=== PATIENT | female | born 1980 | race Caucasian/White ===

== ENCOUNTER 2016-09-08 19:22 | Inpatient (IN) | payer BC, OTHER ==
[2016-09-08] MEDS ORDERED: MORPHINE SULFATE 5 MG/ML PFS IVP ONE (19:41)
[2016-09-08] MEDS ORDERED: ONDANSETRON HCL IV 4 MG/2 ML VIAL IVP PRN (19:41)
[2016-09-08] MEDS ORDERED: 0.9 % SODIUM CHLORIDE 1000ML 1,000 ML IV SCH (19:45)
--- NOTE | 2016-09-08 19:45 | Emergency Department Record ---
History of Present Illness - General Chief Complaint: Abdominal Pain Stated Complaint: VOMITING AND ABD PAIN Time Seen by Provider: 09/08/16 19:41 Source: Patient Mode of Arrival: Ambulatory Limitations: No limitations - History of Present Illness Initial Comments: 36 yo female presents to ED with a CC of abdominal pain and vomiting that began last night. Patient denies fevers, chills, or recent illness, does report a history of Crohn's and gallstones. Patient reports abdominal pain at her baseline, but reports that today's symptoms are worse. Patient underwent colonoscopy in June for her symptoms with Dr. Cabrera. Complaint: Abdominal pain Onset/Timin -: Days(s) Location: Epigastric Radiation: Back Severity: Moderate Quality: Sharp, Stabbing Consistency: Constant Improves With: Nothing Worsens With: Nothing Associated Symptoms: Diarrhea, Nausea, Vomiting Treatments Prior to Arrival: Antacids - Related Data LMP Date: 09/01/16 Home Medications Medication Instructions Recorded Confirmed Last Taken Budesonide [Entocort EC] 3 mg PO DAILY 09/08/16 09/08/16 Unknown Lamotrigine [Lamictal] 50 mg PO DAILY 09/08/16 09/08/16 Unknown Allergies Allergy/AdvReac Type Severity Reaction Status Date / Time epinephrine AdvReac Mild hypotension Verified 09/08/16 19:37 Travel Screening - Travel/Exposure Within Last 30 Days Have you traveled within the last 30 days?: No - Travel/Exposure Within Last Year Have you traveled outside the [place] in the last year?: No - Additonal Travel Details Have you been exposed to anyone with a communicable illness?: No Review of Systems Constitutional: Denies: Chills, Fever, Malaise, Night sweats Eyes: Denies: Eye discharge, Eye pain ENT: Denies: Congestion, Ear pain, Epistaxis Respiratory: Denies: Cough, Dyspnea Cardiovascular: Denies: Chest pain, Dyspnea on exertion, Palpitations Endocrine: Denies: Fatigue, Heat or cold intolerance Gastrointestinal: Reports: Abdominal pain, Nausea, Vomiting Genitourinary: Denies: Dysuria, Frequency, Hematuria Musculoskeletal: Denies: Arthralgia, Back pain, Gout, Joint swelling Skin: Denies: Bruising, Change in color, Pruritus Neurological: Denies: Abnormal gait, Confusion, Headache, Seizure Psychiatric: Denies: Anxiety Hematological/Lymphatic: Denies: Anemia, Blood Clots Past Medical History - SOCIAL HISTORY Smoking Status: Never smoker Alcohol Use: None Drug Use: None - RESPIRATORY Hx Respiratory Disorders: Yes Hx Asthma: Yes (activity induced asthma) - CARDIOVASCULAR Hx Cardio Disorders: No - NEURO Hx Neuro Disorders: Yes Hx Headaches: Yes Hx of Migraines: Yes - GI Hx GI Disorders: Yes Hx Abdominal Pain: Yes Hx Crohn's Disease: Yes Hx Nausea/Vomiting: Yes Hx Wt Loss/Wt Gain: Yes (fluxuates) Comment:: diarrhea - Hx Genitourinary Disorders: No Comment:: pt had tubal ligation October,, has had vasectomy - ENDOCRINE Hx Endocrine Disorders: No - MUSCULOSKELETAL Hx Musculoskeletal Disorders: Yes Comment:: wrist/hand pain - PSYCH Hx Psych Problems: Yes Hx Depression: Yes - HEMATOLOGY/ONCOLOGY Hx Hematology/Oncology Disorders: No Family Medical History Any Significant Family History?: No Family Hx Comment (NOT TO BE USED IN PLACE OF ITEMS BELOW): pt adopted Physical Exam - General General Appearance: Alert, Oriented x3, Cooperative, No acute distress Limitations: No limitations - Head Head exam: Atraumatic, Normocephalic, Normal inspection Head exam detail: negative: Abrasion, Contusion, Delgado's sign, General tenderness, Hematoma, Laceration - Eye Eye exam: Normal appearance. negative: Conjunctival injection, Periorbital swelling, Periorbital tenderness, Scleral icterus - ENT Ear exam: negative: Auricular hematoma, Auricular trauma Nasal Exam: negative: Active bleeding, Discharge, Dried blood, Foreign body Mouth exam: negative: Drooling, Laceration, Muffled voice, Tongue elevation - Neck Neck exam: Normal inspection. negative: Meningismus, Tenderness - Respiratory Respiratory exam: Normal lung sounds bilaterally. negative: Respiratory distress, Rhonchi, Stridor, Wheezes - Cardiovascular Cardiovascular Exam: Regular rate, Normal rhythm, Normal heart sounds - GI/Abdominal GI/Abdominal exam: Soft, Tenderness (Diffuse TTP on examination with guarding present, no rebound, no peritoneal signs present.). negative: Distended, Pulsatile mass, Rebound, Rigid - Rectal Rectal exam: Deferred - exam: Deferred - Extremities Extremities exam: Normal inspection. negative: Calf tenderness, Pedal edema, Tenderness - Back Back exam: Reports: Normal inspection. Denies: CVA tenderness (R), CVA tenderness (L) - Neurological Neurological exam: Alert, Normal gait, Oriented X3 - Psychiatric Psychiatric exam: Normal affect, Normal mood - Skin Skin exam: Normal color. negative: Abrasion Type of lesion: negative: abrasion Course Vital Signs 09/08/16 19:26 Temperature 98.0 F Pulse Rate 96 H Respiratory 20 Rate Blood Pressure 102/88 Pulse Ox 98 - Reevaluation(s) Reevaluation #1: 09/08/16 21:16 Labs reviewed, WBC 14.7, AG 16.8. Labs are otherwise grossly unremarkable for an acute process. CT Abdomen and Pelvis: Fluid-filled small bowel down the RLQ c/w partial SBO, 20 cm section of bowel wall thickening present c/w active crohn's. 9:16 AM Case was discussed with Ana Cristina DELA CRUZ, will accept admission with consultation to Dr. Bassett in the morning. Patient and her mother were updated on all results, and agree with the plan for admission at this time. Reevaluation #2: 09/08/16 21:32 Message and text sent to Dr. Bassett regarding consultation tomorrow morning. Medical Decision Making - Lab Data Result diagrams: 09/08/16 19:51 09/08/16 19:51 Disposition Disposition: Admit Clinical Impression: Partial small bowel obstruction Exacerbation of Crohn's disease Qualifiers: Digestive disease complication type: unspecified complication Qualified Code(s) : K50.919 - Crohn's disease, unspecified, with unspecified complications Disposition: Still a Patient at [facility] Decision to Admit: Admit from ER Decision to Admit Date: 09/08/16 Decision to Admit Time: 21:23 Condition: (1) Good Forms: Patient Portal Access Time of Disposition: 21:23
[2016-09-08 19:57] LABS: BASO % 0.2 % (0-6); EOS % 0.3 % (0-6); HEMATOCRIT 45.5 % (35.0-47.0); HEMOGLOBIN 14.8 gm/dl (11.6-16.0); LYMPH % 8.7 % (16-45); MEAN CELL VOLUME 88.7 fl (81-97); MEAN CORPUSCULAR HEMOGLOBIN 28.8 pg (27-33); MEAN CORPUSCULAR HGB CONC 32.5 g/dl (32-36); MEAN PLATELET VOLUME 9.2 fl (7.4-10.4); MONO % 5.5 % (0-9); PLATELET COUNT 401 K/uL (130-400); RED BLOOD COUNT 5.13 M/uL (3.80-5.40); RED CELL DISTRIBUTION WIDTH 14.9 % (11.5-14.5); WHITE BLOOD COUNT W/O DIFF 14.7 K/uL (4.2-12.2)
[2016-09-08 20:06] LABS: ALB/GLOB RATIO 1.3 (1.1-1.8); ALBUMIN 4.2 gm/dL (3.5-5.0); ALKALINE PHOSPHATASE 101 U/L (38-126); ALT/SGPT 41 U/L (9-52); ANION GAP 16.8 (7-16); CARBON DIOXIDE 23.2 mmol/L (22-30); CREATININE 0.9 mg/dL (0.52-1.04); EST GLOMERULAR FILTRATION RATE > 60 ml/min; GLUCOSE,RANDOM 125 mg/dL (70-110); LIPASE 46 U/L (23-300); TOTAL PROTEIN 7.5 gm/dL (6.3-8.2)
[2016-09-08 20:07] LABS: AST/SGOT 23 U/L (14-36); BILIRUBIN,TOTAL 0.68 mg/dL (0.2-1.3); BLOOD UREA NITROGEN 13 mg/dL (7-17)
[2016-09-08] MEDS ORDERED: 0.9 % SODIUM CHLORIDE 1000ML 1,000 ML IV ONE (20:59)
[2016-09-08] MEDS ORDERED: METHYLPREDNISOLONE PF 125MG/VIAL IVP ONE (21:33)
[2016-09-08] MEDS ORDERED: MORPHINE SULFATE 5 MG/ML PFS IM PRN (22:16)
[2016-09-08] MEDS: ONDANSETRON HCL IV 4 MG/2 ML VIAL IVP PRN (23:09)
[2016-09-08] MEDS: 0.9 % SODIUM CHLORIDE 1000ML 1,000 ML IV PRN (23:27)
[2016-09-08] MEDS: MORPHINE SULFATE 5 MG/ML PFS IVP PRN (23:46)
[2016-09-09] MEDS: ONDANSETRON HCL IV 4 MG/2 ML VIAL IVP PRN ×4 (07:14→22:39)
[2016-09-09 07:45] LABS: URINE APPEARANCE CLEAR; URINE BILIRUBIN NEGATIVE (NEGATIVE); URINE BLOOD NEGATIVE (NEGATIVE); URINE COLOR YELLOW; URINE GLUCOSE (UA) NEGATIVE (NEGATIVE); URINE KETONE NEGATIVE (NEGATIVE); URINE LEUKOCYTE ESTERASE NEGATIVE (NEGATIVE); URINE NITRITE NEGATIVE (NEGATIVE); URINE PROTEIN TRACE (NEGATIVE); URINE UROBILINOGEN 0.2 E.U./dL (0.20 - 1.00)
--- NOTE | 2016-09-09 07:45 | CT SCAN REPORT ---
EXAM: ABDOMEN AND PELVIS CT WITH IV CONTRAST HISTORY: ACUTE PERIUMBILICAL ABDOMINAL PAIN RADIATING TO BACK FOR TWO DAYS. HISTORY OF CROHN'S DISEASE AND CHOLELITHIASIS. TECHNIQUE: Contiguous axial images from the lung bases to the symphysis pubis were obtained after the uneventful intravenous administration of 100 ml of Omnipaque 300. Comparison: Abdomen and pelvis CT 05/30/16. FINDINGS: The lung bases are clear. The liver, spleen, kidneys, adrenals, and pancreas are unremarkable. The gallbladder is contracted with calcified gallstones measuring up to 2.5 cm. No adjacent inflammation. Mildly dilated fluid filled small bowel extending to the central pelvis. The small bowel measures up to 4.4 cm in diameter. There is a long segment of ileum in the central pelvis and right lower quadrant measuring approximately 20 cm in length with intense mucosal enhancement, bowel wall edema and thickening and adjacent inflammation consistent with enteritis. This extends to the terminal ileum. Fluid filled colon with no colonic wall thickening. No free intraperitoneal fluid. Small, but conspicuous mesenteric lymph nodes, the largest in the right lower quadrant measuring up to 12 x 8 mm. The uterus is present. The ovaries are symmetric in size. No lytic or blastic osseous lesion. IMPRESSION: 1. LOW GRADE PARTIAL SMALL BOWEL OBSTRUCTION DUE TO ACTIVE ENTERITIS INVOLVING 20 CM OF ILEUM EXTENDING TO THE TERMINAL ILEUM. FINDINGS ARE LIKELY DUE TO ACTIVE CROHN'S DISEASE. 2. CHOLELITHIASIS WITHOUT EVIDENCE OF ACUTE CHOLECYSTITIS. 3. REACTIVE ADENOPATHY WITHIN THE MESENTERY IN THE RIGHT LOWER QUADRANT. JOB NUMBER: [id number] MTDD
[2016-09-09 07:47] LABS: HCG,QUALITATIVE URINE NEGATIVE (NEGATIVE)
[2016-09-09] MEDS: 0.9 % SODIUM CHLORIDE 1000ML 1,000 ML IV PRN ×2 (08:06→16:30)
[2016-09-09 09:43] LABS: HEMOGLOBIN 11.8 gm/dl (11.6-16.0); MEAN CORPUSCULAR HEMOGLOBIN 29.4 pg (27-33); MEAN CORPUSCULAR HGB CONC 31.9 g/dl (32-36); MEAN PLATELET VOLUME 9.1 fl (7.4-10.4); PLATELET COUNT 304 K/uL (130-400); RED BLOOD COUNT 4.02 M/uL (3.80-5.40); RED CELL DISTRIBUTION WIDTH 14.7 % (11.5-14.5); WHITE BLOOD COUNT W/O DIFF 6.6 K/uL (4.2-12.2)
[2016-09-09 09:53] LABS: ALB/GLOB RATIO 1.2 (1.1-1.8); ALKALINE PHOSPHATASE 89 U/L (38-126); ALT/SGPT 188 U/L (9-52); ANION GAP 13.7 (7-16); AST/SGOT 249 U/L (14-36); BILIRUBIN,TOTAL 0.59 mg/dL (0.2-1.3); BLOOD UREA NITROGEN 10 mg/dL (7-17); CARBON DIOXIDE 22.3 mmol/L (22-30); CREATININE 0.7 mg/dL (0.52-1.04); EST GLOMERULAR FILTRATION RATE > 60 ml/min; GLUCOSE,RANDOM 120 mg/dL (70-110); TOTAL PROTEIN 5.5 gm/dL (6.3-8.2)
[2016-09-09] MEDS: MORPHINE SULFATE 5 MG/ML PFS IVP PRN (10:44)
[2016-09-09] MEDS: LAMOTRIGINE 100 MG TABLET PO SCH (10:47)
--- NOTE | 2016-09-09 13:03 | Medical Records Consult ---
CONSULTATION DATE: 09/09/2016. REQUESTING PHYSICIAN: Akhil Bassett D.O. REASON FOR CONSULTATION: Abdominal pain with terminal ileitis. HISTORY OF PRESENT ILLNESS: The patient is a 36-year-old female who has had vague abdominal pain for the last year or so. They have been working her up for the presumed diagnosis of Crohns disease. She underwent a colonoscopy about a month ago on which she was noted to have marked stenosis and stricturing of her ileocecal valve. Nonetheless this was traversed, and ileal biopsies were taken. These are still pending. She states that she was placed on some Entocort and was sent home. She did well until the last 24 to 36 hours. She did have some periumbilical pain which she felt was a recurrent umbilical hernia. She was seen in the emergency room where a repeat CT scan was done. This did show partial small bowel obstruction with extensive thickening and narrowing of her terminal ileum. She had an elevated white blood cell count at 14.7. Since being admitted she has been given intravenous Solu Medrol and bowel rest. She initially had some issues with vomiting and diarrhea when admitted, but this has all calmed down. PAST MEDICAL HISTORY: Is significant for inflammatory bowel disease. PAST SURGICAL HISTORY: Laparoscopic tubal ligation in October of 2014. Subsequent open umbilical herniorrhaphy about 18 months ago. CURRENT MEDICATIONS: She only takes Entocort and Lamictal. ALLERGIES: She has no known medical allergies. SOCIAL HISTORY: She denies any tobacco or alcohol usage. PHYSICAL EXAMINATION: Vital Signs: Are stable. Heart: Regular rate and rhythm. Lungs: Clear. Abdomen: Soft. Mildly obese. It is minimally tender diffusely. There are bowel sounds noted. She has a well-healed infraumbilical scar from her prior hernia. DIAGNOSTIC DATA: Her CT scan was reviewed which did show diffuse thickening of her terminal ileum. There is narrowing proximal to this with a partial small bowel obstruction component. She has a very heavy stone burden in her gallbladder. IMPRESSION: Inflammatory bowel disease, most likely Crohns, causing partial small bowel obstruction. PLAN: After speaking with the patient and GI, she has been failing medical therapy. I think at some point she is going to need a laparoscopic ileocecectomy. The plan will be to continue some intravenous steroids to calm this down and taper over the next two to three weeks. She brought up wanting a laparoscopic cholecystectomy at the same time which we could accommodate. At this point we will start her on clear liquids. I will see her in the office in about a week's time. Thank you for this referral. Rocky Steiner D.O. Date Time JOB NUMBER: [id number] MTDD
[2016-09-09] MEDS ORDERED: HYDROCODONE/APAP 7.5/325MG TABLET PO PRN ×2 (13:23)
[2016-09-09] MEDS ORDERED: METHYLPREDNISOLONE SOD 40MG/VIAL IVP SCH (13:30)
--- NOTE | 2016-09-09 15:13 | History & Physical ---
History of Present Illness - Date of Service Date of Service for History & Physical: 09/09/16 - History of Present Illness Admitting Diagnosis: Crohn's exacerbation. Partial SBO History of Present Illness: 36yo female with CC of abdominal pain and vomiting. She has a history of Crohn's , asthma, migraines and depression. Patient presented to the ED with 2 day history of sharp abdominal pain radiating through to the back. She reports if felt like an arrow was going through me. This was different than her baseline abdominal cramping. she began to have nausea and vomiting and was unable to keep fluids down. She decided to come to the ED. While in the ED, patient had CT abdomen that showed a partial SBO 2/2 to a segment of active enteritis extending 20cm from ileum to terminal ileum. Patient was afebrile. WBC count was slightly elevated at 14.2. CRP was 1.3. UA was negative for infection did have trace protein. Patient was given 125mg IV solumedrol, made NPO and was admitted for acute Crohn's flare with partial SBO. GI was consulted. 09/09/16- Patient states she is doing a little better today. Her pain is no longer sharp and constant and is now more of an intermittent cramping sensation mostly in the lower abdomen. She has not had any vomiting and nausea is well controlled. The morphine has been doing well at controlling her pain but she does have a headache this morning similar to her previous migraines. She has not been able to take her lamictal the past few days 2/2 vomiting and says that usually controls her headaches pretty well. Patient reports normal stool output which for her is mostly liquid and orange colored. She denies any obvious bleeding. She had C-scope back in June which showed changes consistent with Crohn's. She was started on entocort with no change in her daily symptoms. She is scheduled to have her gallbladder removed 2/[address] Steiner as well. PCP: Ricardo GI: DONNIE MOTA: Jatin Travel Screening - Travel/Exposure Within Last 30 Days Have you traveled within the last 30 days?: No - Travel/Exposure Within Last Year Have you traveled outside the [place] in the last year?: No - Additonal Travel Details Have you been exposed to anyone with a communicable illness?: No - Travel Symptoms Symptom Screening: None Review of Systems Constitutional: Denies: Chills, Fever, Malaise, Night sweats Eyes: Denies: Eye discharge, Eye pain ENT: Denies: Congestion, Ear pain, Epistaxis Respiratory: Denies: Cough, Dyspnea Cardiovascular: Denies: Chest pain, Dyspnea on exertion, Palpitations Endocrine: Denies: Fatigue, Heat or cold intolerance Gastrointestinal: Reports: Abdominal pain, Nausea, Vomiting Genitourinary: Denies: Dysuria, Frequency, Hematuria Musculoskeletal: Denies: Arthralgia, Back pain, Gout, Joint swelling Skin: Denies: Bruising, Change in color, Pruritus Neurological: Denies: Abnormal gait, Confusion, Headache, Seizure Psychiatric: Denies: Anxiety Hematological/Lymphatic: Denies: Anemia, Blood Clots Past Medical History - SOCIAL HISTORY Smoking Status: Never smoker Alcohol Use: None Drug Use: None - RESPIRATORY Hx Respiratory Disorders: Yes Hx Asthma: Yes (activity induced asthma) - CARDIOVASCULAR Hx Cardio Disorders: No - NEURO Hx Neuro Disorders: Yes Hx Headaches: Yes Hx of Migraines: Yes (since 4 years old and occurr frequently) Comment:: head injuries x 2 as child - GI Hx GI Disorders: Yes Hx Abdominal Pain: Yes Hx Crohn's Disease: Yes Hx Nausea/Vomiting: Yes Hx Wt Loss/Wt Gain: Yes (fluxuates) Comment:: diarrhea - Hx Genitourinary Disorders: No Comment:: pt had tubal ligation October,, has had vasectomy - ENDOCRINE Hx Endocrine Disorders: No Hx Diabetes: No Hx Thyroid Disease: No - MUSCULOSKELETAL Hx Musculoskeletal Disorders: Yes Hx Arthritis: No Hx Back Injury: No Hx Fibromyalgia: No Hx Gout: No Hx Musculoskeletal Disease: No Hx Osteoporosis: No Comment:: 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[employer], 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 - PSYCH Hx Psych Problems: Yes Hx Depression: Yes - HEMATOLOGY/ONCOLOGY Hx Hematology/Oncology Disorders: No Family Medical History Any Significant Family History?: No Family Hx Comment (NOT TO BE USED IN PLACE OF ITEMS BELOW): pt adopted H&P Meds/Allergies - Allergies Allergies: Allergies Allergy/AdvReac Type Severity Reaction Status Date / Time epinephrine AdvReac Mild hypotension Verified 09/08/16 19:37 - Home Medications Home Medications Medication Instructions Recorded Confirmed Last Taken Budesonide [Entocort EC] 3 mg PO DAILY 09/08/16 09/08/16 Unknown Lamotrigine [Lamictal] 50 mg PO DAILY 09/08/16 09/08/16 Unknown - Active Medications Active Medications: Current Medications Acetaminophen/Hydrocodone Bitart ([place] 7.5mg/325mg) 1 each PO Q4H PRN PRN Reason: pain Last Admin: 09/09/16 14:03 Dose: 1 each Acetaminophen/Hydrocodone Bitart ([place] 7.5mg/325mg) 2 each PO Q4H PRN PRN Reason: pain Sodium Chloride () 1,000 mls @ 125 mls/hr IV .Q8H PRN PRN Reason: LARGE VOLUME IV Last Admin: 09/09/16 08:06 Dose: 125 mls/hr Lamotrigine (Lamictal) 50 mg PO DAILY [facility] Last Admin: 09/09/16 10:47 Dose: 50 mg Methylprednisolone Sodium Succinate (Solu-Medrol) 40 mg IVP DAILY [facility] Last Admin: 09/09/16 14:03 Dose: 40 mg Morphine Sulfate (Morphine Sulfate) 5 mg IVP Q4HR PRN PRN Reason: Pain - General Stop: 09/15/16 23:42 Last Admin: 09/09/16 10:44 Dose: 5 mg Ondansetron HCl (Zofran) 4 mg IVP Q4H PRN PRN Reason: NAUSEA Last Admin: 09/09/16 10:55 Dose: 4 mg Physical Exam - Vital Signs Vital Signs: Vital Signs - Last 24 Hrs Temp Pulse Pulse Resp BP BP Pulse Ox 09/09/16 13:27 98.9 F 91 H 20 121/73 99 09/09/16 08:11 12 09/09/16 06:16 97.8 F 80 14 95/66 97 09/08/16 22:16 98.3 F 97 H 16 109/79 100 09/08/16 21:58 92 H 16 119/83 98 - General General Appearance: Alert, Oriented x3, Cooperative, No acute distress Limitations: No limitations - Head Head exam: Atraumatic, Normocephalic, Normal inspection Head exam detail: negative: Abrasion, Contusion, Delgado's sign, General tenderness, Hematoma, Laceration - Eye Eye exam: Normal appearance. negative: Conjunctival injection, Periorbital swelling, Periorbital tenderness, Scleral icterus - ENT Ear exam: negative: Auricular hematoma, Auricular trauma Nasal Exam: negative: Active bleeding, Discharge, Dried blood, Foreign body Mouth exam: negative: Drooling, Laceration, Muffled voice, Tongue elevation - Neck Neck exam: Normal inspection. negative: Meningismus, Tenderness - Respiratory Respiratory exam: Normal lung sounds bilaterally. negative: Respiratory distress, Rhonchi, Stridor, Wheezes - Cardiovascular Cardiovascular Exam: Regular rate, Normal rhythm, Normal heart sounds - GI/Abdominal GI/Abdominal exam: Soft, Diminished bowel sounds, Tenderness (Diffuse TTP on examination with guarding present, no rebound, no peritoneal signs present.). negative: Distended, Pulsatile mass, Rebound, Rigid - Rectal Rectal exam: Deferred - exam: Deferred - Extremities Extremities exam: Normal inspection. negative: Calf tenderness, Pedal edema, Tenderness - Back Back exam: Reports: Normal inspection. Denies: CVA tenderness (R), CVA tenderness (L) - Neurological Neurological exam: Alert, Normal gait, Oriented X3 - Psychiatric Psychiatric exam: Normal affect, Normal mood - Skin Skin exam: Normal color. negative: Abrasion Type of lesion: negative: abrasion Results - Labs Result Diagrams: 09/09/16 09:30 09/09/16 09:30 Labs Last 24 Hours: Laboratory Results - last 24 hr 09/09/16 09/09/16 09/09/16 07:30 09:30 09:30 WBC 6.6 RBC 4.02 Hgb 11.8 Hct 37.0 MCV 92.0 MCH 29.4 MCHC 31.9 L RDW 14.7 H Plt Count 304 MPV 9.1 Neutrophils % 86.0 H Lymphocytes % 13.0 L Monocytes % 1.0 Eosinophils % Not Reportable Basophils % Not Reportable Sodium 143 Potassium 4.0 Chloride 107 Carbon Dioxide 22.3 Anion Gap 13.7 BUN 10 Creatinine 0.7 Estimated GFR > 60 Random Glucose 120 H Calcium 7.5 L Total Bilirubin 0.59 AST 249 H ALT 188 H Alkaline Phosphatase 89 C-Reactive Protein Total Protein 5.5 L Albumin 3.0 L Globulin 2.5 Albumin/Globulin Ratio 1.2 Urine Color Yellow Urine Appearance Clear Urine pH 6.0 Ur Specific [place] 1.025 Urine Protein Trace H Urine Glucose (UA) Negative Urine Ketones Negative Urine Blood Negative Urine Nitrite Negative Urine Bilirubin Negative Urine Urobilinogen 0.2 Ur Leukocyte Esterase Negative Urine HCG, Qual Negative 09/09/16 09:30 WBC RBC Hgb Hct MCV MCH MCHC RDW Plt Count MPV Neutrophils % Lymphocytes % Monocytes % Eosinophils % Basophils % Sodium Potassium Chloride Carbon Dioxide Anion Gap BUN Creatinine Estimated GFR Random Glucose Calcium Total Bilirubin AST ALT Alkaline Phosphatase C-Reactive Protein 1.3 H Total Protein Albumin Globulin Albumin/Globulin Ratio Urine Color Urine Appearance Urine pH Ur Specific [place]ell Urine Protein Urine Glucose (UA) Urine Ketones Urine Blood Urine Nitrite Urine Bilirubin Urine Urobilinogen Ur Leukocyte Esterase Urine HCG, Qual - Imaging and Cardiology CT scan - abdomen Status: Report reviewed (partial SBO secondary to active enteritis. 20cm of bowel from ileum to terminal ileum. ) VTE H&P Assessment - Risk for VTE Risk for VTE: Yes Risk Level: Moderate Risk Assessment Date: 09/09/16 Risk Assessment Time: 15:17 VTE Orders Placed or Will Be Placed: Yes Plan - Inpatient Certification Inpatient Certification: Admit to inpatient care: Based on my medical assessment, after consideration of patient's risk factors (age, co-morbidities and patient presenting symptoms and acuity), I expect that this patient will remain in the hospital greater than or equal to two midnights and that the services needed warrant inpatient care because: Patient Risk Factors: [Active Crohn's flare, partial SBO, abdominal pain] Estimated length of stay: [72-96H] The patient may reasonably be expected to be discharged or transferred to a hospital within 96 hours after admission to [facility]. Services needed: [IV fluids, IV pain medications, IV steroids] Post hospital care (if known): [Discharge to home with outpatient surgical follow up ] I certify that my determination is in accordance with my understanding of Medicare requirements for reasonable and necessary inpatient services. 09/09/16 15:05 - Detailed Diagnosis and Plan (1) Exacerbation of Crohn's disease Current Visit: Yes Status: Acute Qualifiers: Digestive disease complication type: with intestinal obstruction Qualified Code(s): K50.912 - Crohn's disease, unspecified, with intestinal obstruction Base Code: K50.90 - CROHN'S DISEASE, UNSPECIFIED, WITHOUT COMPLICATIONS Comment: 09/09/16- CT adomen showed 20cm of small bowel from ileum to terminal ileum with active enteritis consistent with active Crohn's. -General surgery, Dr. Steiner, and GI, Dr. Bassett, consulted. Dr. Steiner recommends to advance diet to clear liquids if tolerating. He would like patient to continue IV solumedrol 40mg while inpatient and discharge with oral prednisone 40mg daily with a 10mg decrease weekly. He will follow up [facility] patient as outpatient for lap cholecystectomy and small bowel resection. Dr. Bassett agrees with this plan. -Will advance to clear liquids -add on [place] 7.5/325mg PO Q4H prn severe pain -continue to monitor vitals q4H -repeat labs qam (2) Partial small bowel obstruction Current Visit: Yes Status: Acute Base Code: K56.69 - OTHER INTESTINAL OBSTRUCTION Comment: 09/09/26- CT showed partial SBO. Dr. Steiner consulted. Patient reports her normal stool output. -will advance to clear liquids and monitor for increase in abdominal pain -will continue to monitor stool output (3) Full code status Current Visit: Yes Status: Acute Base Code: Z78.9 - OTHER SPECIFIED HEALTH STATUS Comment: 09/09/16- Patient is full code (4) DVT prophylaxis Current Visit: Yes Status: Acute Base Code: [id number] - Comment: 09/09/16- Patient is at moderate risk with restricted mobility -lovenox 40mg SQ daily for prophylaxis
[2016-09-09] MEDS ORDERED: ENOXAPARIN 40 MG/0.4 ML SYR SQ SCH (15:30)
[2016-09-09] MEDS ORDERED: AL HYDROX/MAG HYDROX 30ML UD PO PRN (16:23)
[2016-09-10 06:56] LABS: ALB/GLOB RATIO 1.1 (1.1-1.8); ALBUMIN 2.7 gm/dL (3.5-5.0); BLOOD UREA NITROGEN 9 mg/dL (7-17); CREATININE 0.7 mg/dL (0.52-1.04); EST GLOMERULAR FILTRATION RATE > 60 ml/min; GLUCOSE,RANDOM 101 mg/dL (70-110); TOTAL PROTEIN 5.2 gm/dL (6.3-8.2)
[2016-09-10 06:57] LABS: ALKALINE PHOSPHATASE 73 U/L (38-126); ALT/SGPT 108 U/L (9-52); AST/SGOT 65 U/L (14-36)
--- NOTE | 2016-09-10 07:02 | Discharge Note ---
Discharge Note - Date Date of Discharge Note: 09/10/16 Disposition: Home, Self-Care Condition: (1) Good Additional Instructions: follow up with Dr. Steiner in one week follow up with Dr. Cabrera sep [address] Posey in 7-10 days norco 5 mg one every 4 hours PRN prednisone 40 mg daily for one week and can split to BID than 30 mg per day , than 20 mg per day, than 10 mg per day Stop entcort till prednisone stopped or instructed to start by your Drs Prescriptions: Hydrocodone/Acetaminophen [[place] 5mg/325mg] 1 tab PO Q6H PRN #30 tab PRN Reason: Pain - General Prednisone [Prednisone 10Mg] 40 mg PO DAILY #70 tab Forms: Patient Portal Access
[2016-09-10 07:09] LABS: BASO % 0.2 % (0-6); GRAN % 58.8 % (47-80); HEMATOCRIT 34.2 % (35.0-47.0); HEMOGLOBIN 10.9 gm/dl (11.6-16.0); LYMPH % 28.7 % (16-45); MEAN CELL VOLUME 92.2 fl (81-97); MEAN CORPUSCULAR HGB CONC 31.9 g/dl (32-36); MEAN PLATELET VOLUME 9.8 fl (7.4-10.4); MONO % 12.3 % (0-9); PLATELET COUNT 296 K/uL (130-400); RED BLOOD COUNT 3.71 M/uL (3.80-5.40); RED CELL DISTRIBUTION WIDTH 14.7 % (11.5-14.5); WHITE BLOOD COUNT W/O DIFF 5.1 K/uL (4.2-12.2)
[2016-09-10 07:16] LABS: MEAN CORPUSCULAR HEMOGLOBIN 29.3 pg (27-33)
--- NOTE | 2016-09-10 08:18 | Medical Records Consult ---
DATE OF CONSULTATION: 09/09/16 The patient is a very pleasant 36-year-old female seen in consultation in the hospital today for evaluation of possible Crohn's disease and small bowel obstruction. The patient came into the Emergency Department yesterday with complaints of severe abdominal pain and recurrent vomiting with seven or eight episodes of emesis including bilious emesis. She has been suffering with chronic mild pain, but this became quite severe and in association with the vomiting precipitated this Emergency Room visit. She has been seen by my associates on prior occasions and in fact saw Dr. Cabrera approximately one month ago with complaints of diarrhea. She had previous colonoscopy on two occasions the last in July of [address] Wall found ileocecal valve stenosis which precluded advancement of the colonoscope into the ileum, biopsies, however, from the ileum did demonstrate inflammatory changes. Over a year prior to that she had terminal ileitis noted at the time of colonoscopy with a normal appearing colon. She was started on Entocort at that time and Entocort was again resumed over this past month, but symptoms developed despite treatment. She was scheduled to see Dr. Cabrera in the office to determine additional therapies which would be available. CAT scan obtained at the time of this visit included a low grade partial small bowel obstruction with approximately 20 cm of terminal ileum involved with inflammatory changes most likely associated with Crohn's disease, it also demonstrated gallstones without evidence of acute cholecystitis. There was some reactive adenopathy in the right lower quadrant. PAST MEDICAL HISTORY: The patient's past medical history includes exercise induced asthma. PAST SURGICAL HISTORY: Previous surgeries include a tubal ligation in October of 2014. HOME MEDICATIONS: Included Budesonide 3 mg three tablets daily and Lamictal 50 mg daily. ALLERGIES: EPINEPHRINE WHICH CAUSED HYPOTENSION. SOCIAL HISTORY: No history of tobacco or alcohol consumption. REVIEW OF SYSTEMS: These were noted in the medical record and reviewed. PHYSICAL EXAMINATION: The patient was alert and oriented. She was afebrile. NECK: Supple. HEART: Regular. LUNGS: Clear. ABDOMEN: Soft, but distended and diffusely tender. Bowel sounds were diminished, but audible. EXTREMITIES: Free from edema. NEUROMUSCULAR: Grossly unremarkable. The CAT report is as outlined above with evidence of terminal ileitis extending approximately 20 cm and small bowel obstruction. Gallstones were also noted. Laboratory reveals the following: White blood cell count is 14.7, hemoglobin is 14.8, hematocrit is 45.5, platelet count is 401,000. BUN and creatinine were 13 and 0.9. Glucose is 125. The metabolic panel is unremarkable except for a slight depleted potassium of 3.4. Lipase and aminotransferase levels are normal. Urinalysis is unremarkable except for trace protein. IMPRESSION: 1. THE PATIENT IS SUFFERING WITH A PARTIAL SMALL BOWEL OBSTRUCTION MOST LIKELY RELATED TO CROHN'S DISEASE INVOLVING THE TERMINAL ILEUM NOTED ON CAT SCANNING AND ON PREVIOUS COLONOSCOPY EXAMINATIONS. 2. SHE ALSO WAS FOUND TO HAVE GALLSTONES, BUT DOES NOT SEEM TO HAVE EVIDENCE OF CHOLECYSTITIS. RECOMMENDATIONS: 1. At this point the patient is somewhat improved, I would recommend intravenous Solu-Medrol and orders were written for 40 mg to be given daily. This can be tapered slowly over time following discharge. 2. I would as mentioned above recommend starting steroid therapy to see if this helps reduce the inflammatory changes noted. Surgical consultation has also been requested and I discussed my impressions and recommendations with Dr. Steiner as well. Further recommendations may be forth coming pending her progress. Thank you for allowing me to participate in her care. I would be happy to see her again at her your discretion and in fact she has an appointment to see us in the clinic in the next month. She might require surgical intervention pending her progress. Akhli aBssett D.O. Date & Time JOB NUMBER: [id number] MTDD
[2016-09-10] MEDS: LAMOTRIGINE 100 MG TABLET PO SCH (09:05)
--- NOTE | 2016-09-11 15:32 | Discharge Summary ---
DATE OF DISCHARGE: 09/10/16, 7:05 a.m. DISCHARGE DIAGNOSES: 1. ACUTE EXACERBATION OF CROHN'S PENDING BIOPSY. 2. HISTORY OF MOOD PROBLEMS AND ON LAMICTAL. 3. HISTORY OF ULCERATIVE COLITIS. ATTENDING PHYSICIAN: GAB WRIGHT D.O. TAKING OVER FOR DERICK LIEBERMAN AND DR. SPANGLER ON THE DAY OF DISCHARGE. REASON FOR HOSPITALIZATION: This 36-year-old female presented to the Emergency Department with complaints of abdominal pain and vomiting that began the night before coming to the Emergency Department at 09/08/16. The patient denies fevers , chills, or recent illness. Does have a history of Crohn's and gallstones, however, the patient, when asked about if she has Crohn's, she says; Well I had a biopsy on August 02 and I still don't know if I have Crohn's or not. The patient states her abdominal pain is worse. She underwent a colonoscopy in June with Dr. Cabrera as her primary. GI doctor, Dr. Wall, was the one who did the biopsies on her ileum and possibly colon. The patient was seen in the Emergency Department with Dr. Corona and admitted to the hospital for partial small bowel obstruction, exacerbation of Crohn's disease. Her CAT scan revealed fluid-filled small bowel down to the right lower quadrant consistent with partial small bowel obstruction and a 20 cm resection of bowel wall thickening in the ileum consistent with active Crohn's disease. Surgical consults with Dr. Steiner and Dr. Bassett. Dr. Steiner would like to see the patient in a week to see how she is doing; possible surgical intervention. Dr. Cabrera has an appointment scheduled on September 27. Dr. Bassett's impression was probable Crohn's ileitis, small bowel obstruction secondary to the ileitis. Dr. Steiner's consult; Impression: Inflammatory bowel disease, most likely Crohn's, causing partial small bowel obstruction. Plan for Dr. Steiner; if she is not doing well on medical therapy after talking to GI and there was discussion of a laparoscopic ileocecectomy and the patient would like to have her gallbladder removed at the same time. We will continue steroids and taper over the next three weeks. She is to follow-up with Dr. Steiner in a week for further discussion. THERAPY PROVIDED: The patient was given IV Solu-Medrol, pain control with [place] and Morphine. It looks like she had a slight rash from the Morphine. The pain is being very well-controlled with [place] at this time. Her diet is up to clear liquids and moving to a soft diet this morning prior to discharge. She is feeling much better and would like to go home. There is slight pain in the right lower quadrant but no rebound or rigidity. LABORATORY AND CAT SCAN: I discussed the CAT scan earlier. The laboratory initially in the Emergency Department; her white count was 14,700 and dropped down to 6,600. Her potassium was a little bit low in the Emergency Department at 3.4 and is back up to 3.8. Her BUN on discharge is 9, creatinine is 0.7. Her liver enzymes are improving. They have come down a little bit. It was a little bit elevated at 249 and 188 and maybe related to gallbladder. Lipase was normal. Urine was negative. Incidental gallstones seen on the CAT scan. On the CAT scan report, there is low-grade partial small bowel obstruction due to active enteritis involving 20 cm of ileum and involving the terminal ileum. Findings are likely due to active Crohn's disease. Cholelithiasis without evidence of acute cholecystitis. Reactive adenopathy within the mesentery in the right lower quadrant. CONDITION AT DISCHARGE: Much improved. DISCHARGE INSTRUCTIONS: Follow-up with Dr. Posey in 7-10 days. Follow-up with Dr. Steiner in one week. Follow-up with Dr. Cabrera as scheduled on September 27. We will continue the Lamictal 50 mg every day. We will stop the Entocort 9 mg a day until the Prednisone is stopped. We will start up Prednisone orally 40 mg every day for one week, then 30 mg every day for one week, then 20 mg every day for one week, and 10 mg every day for one week. She can split her doses to make it easier on her stomach on the days. [place] 5 mg every four prn pain, #30 pills prescribed and if any more troubles, follow-up with Dr. Posey or return to the Emergency Department. Gab Wright D.O. Date & Time JOB NUMBER: [id number] MTDD
== END 2016-09-10 09:40 | disposition home or self-care (01) | DRG 389 ==
LOC: ER 19:22 → MEDSURG 21:56
PROVIDERS: ADMIT Family Medicine; ATTEND Family Medicine
DX: K56.69 Other intestinal obstruction (principal); K50.90 Crohn's disease, unspecified, without complications
CPT/HCPCS: 74177; 80053; 81003; 81025; 83690; 85025; 85027; 86140; 96361; 96374; 96375; 99223; 99239; 99285; J1650; J2405; J2920; J2930; J7030

== ENCOUNTER 2016-09-24 14:34 | Emergency (ER) | payer BC, OTHER ==
[2016-09-24] MEDS ORDERED: ONDANSETRON HCL IV 4 MG/2 ML VIAL IVP ONE (14:56)
[2016-09-24] MEDS ORDERED: 0.9 % SODIUM CHLORIDE 1000ML 1,000 ML IV SCH (15:00)
--- NOTE | 2016-09-24 15:00 | Emergency Department Record ---
History of Present Illness - General Chief complaint: Vomiting Stated complaint: VOMITING Time Seen by Provider: 09/24/16 14:40 Source: Patient Mode of Arrival: Ambulatory Limitations: No limitations - History of Present Illness Initial comments: 36 yo female presents to ED with a CC of vomiting and loose stools for the past 8 hours. Patient reports that her daughter had similar symptoms, and believes that she may have a GI bug. Patient however is scheduled to have her gallbladder and a section of her colon removed in about 1 weeks, was told by her PCP and Surgeon to come to the ED for evaluation to ensure that her gallbladder was not the cause of her symptoms. Patient denies fevers, chills, or recent illness. MD complaint: Abdominal pain, Nausea, Vomiting Onset/Timin -: Hour(s) Description of Vomiting: Watery Description of Diarrhea: Bloody Associated Abdominal Pain: Yes Location: Periumbilcal Radiation: None Severity: Mild Severity scale (1-10): 3 Quality: Cramping Consistency: Intermittent Improves with: None Worsens with: None Context: Sick contacts Associated Symptoms: Fever/chills, Nausea/vomiting - Related Data Home Medications Medication Instructions Recorded Confirmed Last Taken Lamotrigine [Lamictal] 50 mg PO DAILY 09/08/16 09/24/16 09/23/16 Prednisone [Prednisone 10Mg] 20 mg PO DAILY 09/24/16 09/24/16 09/23/16 Previous Rx's Medication Instructions Recorded Hydrocodone/Acetaminophen [[place] 1 tab PO Q6H PRN #30 tab 09/10/16 5mg/325mg] Ondansetron [Zofran Odt] 4 mg PO Q4H PRN #20 tab.rapdis 09/24/16 Allergies Allergy/AdvReac Type Severity Reaction Status Date / Time latex Allergy ITCHING Verified 09/24/16 14:48 epinephrine AdvReac Mild hypotension Verified 09/08/16 19:37 Travel Screening - Travel/Exposure Within Last 30 Days Have you traveled within the last 30 days?: No Review of Systems Constitutional: Denies: Chills, Fever, Malaise, Night sweats Eyes: Denies: Eye discharge, Eye pain ENT: Denies: Congestion, Ear pain, Epistaxis Respiratory: Denies: Cough, Dyspnea Cardiovascular: Denies: Arrhythmia, Dyspnea on exertion, Palpitations Endocrine: Denies: Fatigue, Heat or cold intolerance Gastrointestinal: Reports: Abdominal pain. Denies: Nausea, Vomiting Genitourinary: Denies: Dysuria, Frequency, Hematuria Musculoskeletal: Denies: Arthralgia, Back pain, Gout, Joint swelling Skin: Denies: Bruising, Change in color Neurological: Denies: Abnormal gait, Confusion, Headache, Seizure Psychiatric: Denies: Anxiety Hematological/Lymphatic: Denies: Anemia, Blood Clots Past Medical History - SOCIAL HISTORY Smoking Status: Never smoker Alcohol Use: None Drug Use: None - RESPIRATORY Hx Respiratory Disorders: Yes Hx Asthma: Yes (activity induced asthma) - CARDIOVASCULAR Hx Cardio Disorders: No - NEURO Hx Neuro Disorders: Yes Hx Headaches: Yes Hx of Migraines: Yes (since 4 years old and occurr frequently) Comment:: head injuries x 2 as child - GI Hx GI Disorders: Yes Hx Abdominal Pain: Yes Hx Crohn's Disease: Yes Hx Nausea/Vomiting: Yes Hx Wt Loss/Wt Gain: Yes (fluxuates) Comment:: diarrhea, partial small bowel obstruction - Hx Genitourinary Disorders: No Comment:: pt had tubal ligation October,, has had vasectomy - ENDOCRINE Hx Endocrine Disorders: No Hx Diabetes: No Hx Thyroid Disease: No - MUSCULOSKELETAL Hx Musculoskeletal Disorders: Yes Hx Arthritis: No Hx Back Injury: No Hx Fibromyalgia: No Hx Gout: No Hx Musculoskeletal Disease: No Hx Osteoporosis: No Comment:: 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[employer] - PSYCH Hx Psych Problems: Yes Hx Depression: Yes - HEMATOLOGY/ONCOLOGY Hx Hematology/Oncology Disorders: No Family Medical History Any Significant Family History?: No Family Hx Comment (NOT TO BE USED IN PLACE OF ITEMS BELOW): pt adopted Physical Exam - General General Appearance: Alert, Oriented x3, Cooperative, Moderate distress Limitations: No limitations - Head Head exam: Atraumatic, Normocephalic, Normal inspection Head exam detail: negative: Abrasion, Contusion, Delgado's sign, General tenderness, Hematoma, Laceration - Eye Eye exam: Normal appearance. negative: Conjunctival injection, Periorbital swelling, Periorbital tenderness, Scleral icterus - ENT Ear exam: negative: Auricular hematoma, Auricular trauma Nasal Exam: negative: Active bleeding, Discharge, Dried blood, Foreign body Mouth exam: negative: Drooling, Laceration, Muffled voice, Tongue elevation - Neck Neck exam: Normal inspection. negative: Meningismus, Tenderness - Respiratory Respiratory exam: Normal lung sounds bilaterally. negative: Respiratory distress, Rhonchi, Stridor, Wheezes - Cardiovascular Cardiovascular Exam: Regular rate, Normal rhythm, Normal heart sounds - GI/Abdominal GI/Abdominal exam: Soft, Tenderness (mild diffuse TTP on examination). negative : Pulsatile mass, Rebound, Rigid - Rectal Rectal exam: Deferred - exam: Deferred - Extremities Extremities exam: Normal inspection. negative: Calf tenderness, Pedal edema, Tenderness - Back Back exam: Reports: Normal inspection. Denies: CVA tenderness (R), CVA tenderness (L) - Neurological Neurological exam: Alert, Normal gait, Oriented X3 - Psychiatric Psychiatric exam: Normal affect, Normal mood - Skin Skin exam: Normal color. negative: Abrasion Type of lesion: negative: abrasion Course Vital Signs 09/24/16 14:40 Temperature 97.8 F Pulse Rate 102 H Respiratory 20 Rate Blood Pressure 97/62 Pulse Ox 100 - Reevaluation(s) Reevaluation #1: 09/24/16 15:54 Labs reviewed, WBC 17.3 with left shift (88% neutrophils). Labs are otherwise grossly unremarkable for an acute process. Patient is currently in US for gallbladder evaluation. Reevaluation #2: 09/24/16 17:39 US abdomen: Numerous gallstones gallbladder with dilation of the CBD 0.9 cm, correlate clinically for cholecystitis. Dr. Steiner paged for consultation. Reevaluation #3: 09/24/16 17:54 Patient reassessed, reports that her pain and nausea symptoms are greatly improved. Case was also discussed with Dr. Steiner, reports that with normal bilirubin, symptoms are unlikely to represent acute cholecystitis. Elevated WBC may also be due to steroid taper. Patient agrees with plan for discharge with follow-up tomorrow with Dr. Steiner and to return to ED for any worsening of her symptoms. Repeat abdominal examination is greatly imrpoved, no peritoneal signs, rebound, or guarding. Patient appears stable for discharge. Medical Decision Making - Lab Data Result diagrams: 09/24/16 14:45 09/24/16 14:45 Disposition Disposition: Discharge Clinical Impression: Nausea and vomiting Qualifiers: Vomiting type: unspecified Vomiting Intractability: non-intractable Qualified Code(s): R11.2 - Nausea with vomiting, unspecified Abdominal pain Qualifiers: Abdominal location: generalized Qualified Code(s): R10.84 - Generalized abdominal pain Disposition: Home, Self-Care Condition: (2) Stable Instructions: Acute Nausea and Vomiting (ED) Additional Instructions: Return to ED if your symptoms worsen or if you have any concerns. Call Dr. Steiner for follow-up appointment in the morning. Zofran as directed. Prescriptions: Ondansetron [Zofran Odt] 4 mg PO Q4H PRN #20 tab.rapdis PRN Reason: Nausea/Vomiting Referrals: Rocky Steiner [DOCTOR OF OSTEOPATH] - Forms: Patient Portal Access Time of Disposition: 17:58
[2016-09-24 15:09] LABS: HEMATOCRIT 44.2 % (35.0-47.0); MEAN CELL VOLUME 92.5 fl (81-97); MEAN CORPUSCULAR HEMOGLOBIN 29.3 pg (27-33); MEAN CORPUSCULAR HGB CONC 31.7 g/dl (32-36); MEAN PLATELET VOLUME 9.6 fl (7.4-10.4); PLATELET COUNT 313 K/uL (130-400); RED BLOOD COUNT 4.78 M/uL (3.80-5.40); RED CELL DISTRIBUTION WIDTH 15.1 % (11.5-14.5); WHITE BLOOD COUNT W/O DIFF 17.3 K/uL (4.2-12.2)
[2016-09-24 15:20] LABS: ALB/GLOB RATIO 1.4 (1.1-1.8); ALBUMIN 3.9 gm/dL (3.5-5.0); ALKALINE PHOSPHATASE 62 U/L (38-126); ALT/SGPT 37 U/L (9-52); ANION GAP 13.9 (7-16); AST/SGOT 16 U/L (14-36); BILIRUBIN,TOTAL 0.91 mg/dL (0.2-1.3); BLOOD UREA NITROGEN 14 mg/dL (7-17); CARBON DIOXIDE 24.1 mmol/L (22-30); CREATININE 0.8 mg/dL (0.52-1.04); EST GLOMERULAR FILTRATION RATE > 60 ml/min; GLUCOSE,RANDOM 92 mg/dL (70-110); LIPASE 49 U/L (23-300); TOTAL PROTEIN 6.6 gm/dL (6.3-8.2)
--- NOTE | 2016-09-28 12:49 | ULTRASOUND REPORT ---
DATE: 09/24/2016 at 3:33 p.m. EXAM: COMPLETE ABDOMEN ULTRASOUND. HISTORY: Right upper quadrant pain for 12 hours. A history of gallstones and Crohn's disease. Nausea and vomiting. TECHNIQUE: Complete real time ultrasound examination of the abdomen was performed. COMPARISON: No prior abdomen ultrasound with which to compare. FINDINGS: The pancreas is identified with no pancreatic mass or peripancreatic fluid collection evident. The abdominal aorta appears negative with no aneurysm seen. Inferior vena cava was negative as seen. The liver appears negative with no hepatic mass or intrahepatic biliary dilatation seen. There do appear to be multiple relatively large echogenic foci in the gallbladder demonstrating shadowing consistent with cholelithiasis. Large gallstones were noted in the gallbladder on the recent abdomen CT of 09/08/2016 as well. No pericholecystic fluid collection identified. The visualized gallbladder wall is at about the upper limits of normal with the posterior aspect of the gallbladder wall obscured by the shadowing from the large gallstones. Clinical correlation as to acute cholecystitis suggested. The right kidney measures 12.7 cm in length with no hydronephrosis evident. The left kidney measures about 12.2 cm in length with no hydronephrosis on the left as well. The spleen appears negative. The common duct appears dilated measuring about 9.2 mm in diameter. The etiology of this dilatation is not clear. IMPRESSION: 1. CHOLELITHIASIS WITH THE GALLBLADDER LARGELY FILLED BY THREE RELATIVELY LARGE GALLSTONES. THESE WERE SEEN ON THE RECENT CT WELL. NO PERICHOLECYSTIC FLUID COLLECTION SEEN, BUT THE COMMON DUCT APPEARS DILATED TODAY MEASURING ABOUT 9.2 MM IN DIAMETER. CLINICAL CORRELATION TO ACUTE CHOLECYSTITIS SUGGESTED. 2. THE REMAINDER OF THE ABDOMINAL ULTRASOUND APPEARED ESSENTIALLY NEGATIVE. NO HYDRONEPHROSIS EVIDENT. JOB NUMBER: [id number] [facility]
== END 2016-09-24 18:22 | disposition home or self-care (01) ==
LOC: ER 14:34
DX: R11.2 Nausea with vomiting, unspecified (principal); R10.84 Generalized abdominal pain; R19.7 Diarrhea, unspecified
CPT/HCPCS: 99284 ×2; 96374; 96361; 83690; 80053; 85027; 76700; J2405; J7030

== ENCOUNTER 2017-09-17 12:43 | Emergency (ER) | payer BC, OTHER ==
[2017-09-17] MEDS: IBUPROFEN 600 MG TABLET PO ONE (14:07)
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
== END 2017-09-17 14:59 | disposition home or self-care (01) ==
LOC: ER 12:43
DX: S16.1XXA Strain of muscle, fascia and tendon at neck level, initial encounter (principal); S60.222A Contusion of left hand, initial encounter; S40.012A Contusion of left shoulder, initial encounter; V43.52XA Car driver injured in collision with other type car in traffic accident, initial encounter; Y92.410 Unspecified street and highway as the place of occurrence of the external cause
CPT/HCPCS: 72050; 99283; 99284

== ENCOUNTER 2018-03-05 12:02 | Inpatient (IN) | payer BC ==
[2018-03-05] MEDS ORDERED: 0.9 % SODIUM CHLORIDE 1,000 ML BAG IV ONE (12:24)
[2018-03-05] MEDS ORDERED: ONDANSETRON HCL IV 4 MG/2 ML VIAL IV ONE (12:24)
[2018-03-05] MEDS ORDERED: HYDROMORPHONE HCL 2 MG/ML VIAL IVP ONE ×2 (12:25→15:46)
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
[2018-03-05 12:37] LABS: BASO % 0.4 % (0-6); EOS % 6.2 % (0-6); GRAN % 44.8 % (47-80); HEMATOCRIT 38.3 % (35.0-47.0); HEMOGLOBIN 13.2 gm/dl (11.6-16.0); LYMPH % 40.9 % (16-45); MEAN CELL VOLUME 86.8 fl (81-97); MEAN CORPUSCULAR HEMOGLOBIN 29.9 pg (27-33); MEAN CORPUSCULAR HGB CONC 34.5 g/dl (32-36); MEAN PLATELET VOLUME 10.2 fl (7.4-10.4); MONO % 7.7 % (0-9); PLATELET COUNT 255 K/uL (130-400); RED BLOOD COUNT 4.41 M/uL (3.80-5.40); WHITE BLOOD COUNT W/O DIFF 4.5 K/uL (4.2-12.2)
[2018-03-05 12:50] LABS: BLOOD UREA NITROGEN 7 mg/dL (6-20); CREATININE 0.9 mg/dL (0.5-0.9); EST GLOMERULAR FILTRATION RATE > 60 mL/min
[2018-03-05 12:53] LABS: GLUCOSE,RANDOM 91 mg/dL (74-109)
[2018-03-05 12:55] LABS: ALBUMIN 4.5 g/dL (4.0-5.0); ALKALINE PHOSPHATASE 53 U/L (35-104); ALT/SGPT 31 U/L (<33); AST/SGOT 30 U/L (10.0-35.0)
[2018-03-05 12:56] LABS: BILIRUBIN,DIRECT < 0.2 mg/dL (0-0.3); LIPASE 26 U/L (13-60)
[2018-03-05] MEDS ORDERED: POTASSIUM CHLORIDE 20 MEQ/15ML CUP PO ONE ×2 (12:59→14:29)
[2018-03-05] MEDS ORDERED: METHYLPREDNISOLONE PF 125MG/VIAL IVP ONE (13:02)
[2018-03-05] MEDS: SOD CHLOR 0.9% WITH KCL 40MEQ 40 MEQ/1,000 ML IV.SOLN IV SCH (13:14)
[2018-03-05 14:45] LABS: URINE APPEARANCE CLEAR; URINE BILIRUBIN SMALL (NEGATIVE); URINE BLOOD NEGATIVE (NEGATIVE); URINE COLOR YELLOW; URINE GLUCOSE (UA) NEGATIVE (NEGATIVE); URINE KETONE 15 mg/dL (NEGATIVE); URINE LEUKOCYTE ESTERASE NEGATIVE (NEGATIVE); URINE NITRITE NEGATIVE (NEGATIVE); URINE PROTEIN NEGATIVE (NEGATIVE); URINE UROBILINOGEN 0.2 E.U./dL (0.20 - 1.00)
--- NOTE | 2018-03-05 16:23 | History & Physical ---
History of Present Illness - Date of Service Date of Service for History & Physical: 03/06/18 - History of Present Illness Admitting Diagnosis: Intractable nausea and vomiting History of Present Illness: Ms. Hidalgo is a 37 y/o female with complaint of nausea, vomiting and acute abdominal pain which began about 2 weeks ago. The patient has a history of Crohn 's disease and was on therapy with Humira but stopped it about 4 months ago due to reaction. She follows with her GI doctor, Dr. Wall who started her on a tapering dose of Prednisone which she has not been able to keep down since the vomiting began. The patient also notes seeing blood on her tissue paper but none in stool since 3 days ago and she has had increasing tenderness of the right lower abdomen. She called her GI doctor and was instructed to come into the ED. On presentation to the ED the patient had several episodes of vomiting which eventually resolved with IV medication. However she still complained of unremitting abdominal pain. Her labs were unremarkable with exception of markedly low potassium and she is stable. She is admitted for pain control and V fluid hydration. Travel Screening - Travel/Exposure Within Last 30 Days Have you traveled within the last 30 days?: No - Travel/Exposure Within Last Year Have you traveled outside the [place] in the last year?: No - Additonal Travel Details Have you been exposed to anyone with a communicable illness?: No - Travel Symptoms Symptom Screening: None Review of Systems Constitutional: Denies: Chills, Fever Eyes: Denies: Eye discharge ENT: Denies: Congestion Respiratory: Denies: Cough Cardiovascular: Denies: Chest pain Endocrine: Reports: Fatigue Gastrointestinal: Reports: Abdominal pain, Diarrhea, Nausea, Vomiting Genitourinary: Denies: Dysuria Musculoskeletal: Denies: Back pain Past Medical History - SOCIAL HISTORY Smoking Status: Never smoker Alcohol Use: None Drug Use: None - RESPIRATORY Hx Respiratory Disorders: Yes Hx Asthma: Yes (activity induced asthma) - CARDIOVASCULAR Hx Cardio Disorders: No - NEURO Hx Neuro Disorders: Yes Hx of Migraines: Yes (since 4 years old and occurr frequently) Comment:: head injuries x 2 as child - GI Hx GI Disorders: Yes Hx Crohn's Disease: Yes Comment:: diarrhea, partial small bowel obstruction - Hx Genitourinary Disorders: No Comment:: pt had tubal ligation October,, has had vasectomy - ENDOCRINE Hx Endocrine Disorders: No Hx Diabetes: No Hx Thyroid Disease: No - MUSCULOSKELETAL Hx Musculoskeletal Disorders: Yes Hx Arthritis: No Hx Back Injury: No Hx Fibromyalgia: No Hx Gout: No Hx Musculoskeletal Disease: No Hx Osteoporosis: No Comment:: 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[employer] - PSYCH Hx Psych Problems: Yes Hx Depression: Yes - HEMATOLOGY/ONCOLOGY Hx Hematology/Oncology Disorders: No Family Medical History Any Significant Family History?: No Family Hx Comment (NOT TO BE USED IN PLACE OF ITEMS BELOW): pt adopted H&P Meds/Allergies - Allergies Allergies: Allergies Allergy/AdvReac Type Severity Reaction Status Date / Time gluten Allergy ABDOMINAL Verified 03/05/18 12:37 PAIN latex Allergy ITCHING Verified 09/17/17 12:47 epinephrine AdvReac Mild hypotension Verified 09/17/17 12:47 - Home Medications Home Medications Medication Instructions Recorded Confirmed Last Taken Topiramate 100Mg Tablet 100 mg PO DAILY 03/05/18 03/05/18 Unknown [Topiramate] Previous Rx's Medication Instructions Recorded Ondansetron [Zofran Odt] 4 mg PO Q4H PRN #20 tab.rapdis 09/24/16 - Active Medications Active Medications: Current Medications Potassium Chloride/Sodium Chloride (Potassium Chl 40meq/) 40 meq in 1,000 mls @ 100 mls/hr IV Q10H JULISSA Last Admin: 03/05/18 13:14 Dose: 100 mls/hr Physical Exam - Vital Signs Vital Signs: Vital Signs - Last 24 Hrs Temp Pulse Resp BP Pulse Ox 03/05/18 12:14 98.4 F 78 16 125/79 97 - General General Appearance: Alert, Oriented x3, Cooperative, No acute distress Limitations: No limitations - Head Head exam: Atraumatic, Normocephalic, Normal inspection - Eye Eye exam: Normal appearance, PERRL - Neck Neck exam: Normal inspection, Full ROM. negative: Tenderness - Respiratory Respiratory exam: Normal lung sounds bilaterally. negative: Respiratory distress - Cardiovascular Cardiovascular Exam: Regular rate, Normal rhythm, Normal heart sounds - GI/Abdominal GI/Abdominal exam: Soft, Tenderness (There is significant lower abdominal tenderness increased in the RLQ.). negative: Rebound, Rigid - Extremities Extremities exam: Normal inspection, Full ROM, Normal capillary refill. negative: Tenderness - Neurological Neurological exam: Alert. negative: Motor sensory deficit Results - Labs Result Diagrams: 03/06/18 06:10 03/06/18 06:10 Labs Last 24 Hours: Laboratory Results - last 24 hr 03/05/18 03/05/18 03/05/18 12:20 12:20 12:20 WBC 4.5 RBC 4.41 Hgb 13.2 Hct 38.3 MCV 86.8 MCH 29.9 MCHC 34.5 RDW 14.0 Plt Count 255 MPV 10.2 Gran % 44.8 L Lymphocytes % 40.9 Monocytes % 7.7 Eosinophils % 6.2 H Basophils % 0.4 ESR Sodium 141 Potassium 2.2 L* Chloride 97 L Carbon Dioxide 28.0 Anion Gap 16.0 BUN 7 Creatinine 0.9 Estimated GFR > 60 Random Glucose 91 Calcium 9.3 Total Bilirubin 0.60 Direct Bilirubin < 0.2 AST 30 ALT 31 Alkaline Phosphatase 53 C-Reactive Protein Total Protein 7.0 Albumin 4.5 Lipase 26 Serum HCG, Qual Negative Urine Color Urine Appearance Urine pH Ur Specific [place] Urine Protein Urine Glucose (UA) Urine Ketones Urine Blood Urine Nitrite Urine Bilirubin Urine Urobilinogen Ur Leukocyte Esterase 03/05/18 03/05/18 03/05/18 12:20 12:20 14:40 WBC RBC Hgb Hct MCV MCH MCHC RDW Plt Count MPV Gran % Lymphocytes % Monocytes % Eosinophils % Basophils % ESR 10 Sodium Potassium Chloride Carbon Dioxide Anion Gap BUN Creatinine Estimated GFR Random Glucose Calcium Total Bilirubin Direct Bilirubin AST ALT Alkaline Phosphatase C-Reactive Protein 0.06 Total Protein Albumin Lipase Serum HCG, Qual Urine Color Yellow Urine Appearance Clear Urine pH 5.5 Ur Specific [place] 1.015 Urine Protein Negative Urine Glucose (UA) Negative Urine Ketones 15 mg/dl H Urine Blood Negative Urine Nitrite Negative Urine Bilirubin Small H Urine Urobilinogen 0.2 Ur Leukocyte Esterase Negative VTE H&P Assessment - Risk for VTE Risk for VTE: Yes Risk Level: Moderate Risk Assessment Date: 03/06/18 Risk Assessment Time: 11:11 VTE Orders Placed or Will Be Placed: Yes Plan - Inpatient Certification Inpatient Certification: Admission due to intractable nausea and vomiting. Length of stay likely 48-72 hours pending GI consult and scoping. 03/06/18 12:43 - Detailed Diagnosis and Plan (1) Nausea & vomiting Current Visit: Yes Status: Acute Base Code: R11.2 - NAUSEA WITH VOMITING, UNSPECIFIED Comment: 03/05/18: - intractable nausea/vomiting due to Crohn's Disease. - clear liquids with advancement of diet as tolerated. - zofran 4mg IVP Q4H PRN, IV Nacl 0.9% @ 100mL/hr. (2) Exacerbation of Crohn's disease Current Visit: Yes Status: Acute Qualifiers: Digestive disease complication type: unspecified complication Qualified Code(s): K50.919 - Crohn's disease, unspecified, with unspecified complications Base Code: K50.90 - CROHN'S DISEASE, UNSPECIFIED, WITHOUT COMPLICATIONS Comment: 03/05/18: - CT abdomen: diffuse colonic edema. - Labs: K+ 2.2 otherwise lytes and CBC w/ diff unremarkable. Vitals stable. - recently discontinued Humira therapy. - start Solumedrol 60mg IV daily, Zofran 4mg Q4H PRN, Protonix 40mg daily and Dilaudid 0.5mg Q4H PRN for pain control. - IV fluid bolus and cont at rate of 100m/hr - repeat am labs, clear liquid diet consult Dr. Wall and keep NPO after midnight. (3) Hypokalemia Current Visit: Yes Status: Acute Base Code: E87.6 - HYPOKALEMIA Comment: 03/05/18: - Potassium 2.2, replete with 40meq PO and 40 meq IV. - repeat labs in the morning. (4) DVT prophylaxis Current Visit: No Status: Acute Base Code: [id number] - Comment: 03/05/18: -lovenox 40mg SQ daily (5) Full code status Current Visit: No Status: Acute Base Code: Z78.9 - OTHER SPECIFIED HEALTH STATUS Comment: 03/05/18: - FULL CODE
[2018-03-05] MEDS ORDERED: SOD CHLOR 0.9% WITH KCL 40MEQ 40 MEQ/1,000 ML IV.SOLN IV SCH (16:55)
[2018-03-05] MEDS: PANTOPRAZOLE SODIUM IV 40 MG VIAL IV SCH (17:38)
[2018-03-05] MEDS: POTASSIUM CHLORIDE 20 MEQ/15ML CUP PO SCH ×2 (17:41→21:52)
[2018-03-05] MEDS: LAMOTRIGINE 100 MG TABLET PO SCH ×2 (17:42→18:22)
[2018-03-05] MEDS: TOPIRAMATE 100MG TABLET PO SCH (17:45)
[2018-03-05] MEDS: BUPROPION HCL 150 MG TAB.SR.12H PO SCH (17:45)
[2018-03-05] MEDS: AZATHIOPRINE 100 MG PO SCH (18:24)
[2018-03-05] MEDS: HYDROMORPHONE HCL 2 MG/ML VIAL IV PRN (20:35)
[2018-03-06] MEDS: SOD CHLOR 0.9% WITH KCL 40MEQ 40 MEQ/1,000 ML IV.SOLN IV SCH ×3 (00:08→20:24)
[2018-03-06 06:34] LABS: EOS % 3.4 % (0-6); GRAN % 50.5 % (47-80); HEMATOCRIT 33.9 % (35.0-47.0); HEMOGLOBIN 10.9 gm/dl (11.6-16.0); LYMPH % 38.9 % (16-45); MEAN CELL VOLUME 89.7 fl (81-97); MEAN CORPUSCULAR HEMOGLOBIN 28.8 pg (27-33); MEAN CORPUSCULAR HGB CONC 32.2 g/dl (32-36); MEAN PLATELET VOLUME 10.5 fl (7.4-10.4); MONO % 7.2 % (0-9); PLATELET COUNT 196 K/uL (130-400); RED BLOOD COUNT 3.78 M/uL (3.80-5.40); RED CELL DISTRIBUTION WIDTH 14.5 % (11.5-14.5)
[2018-03-06 06:42] LABS: BLOOD UREA NITROGEN 4 mg/dL (6-20); CREATININE 0.7 mg/dL (0.5-0.9); EST GLOMERULAR FILTRATION RATE > 60 mL/min; GLUCOSE,RANDOM 84 mg/dL (74-109)
[2018-03-06] MEDS: ONDANSETRON HCL IV 4 MG/2 ML VIAL IVP PRN ×4 (06:50→20:22)
--- NOTE | 2018-03-06 07:24 | CT SCAN REPORT ---
EXAM: CT OF THE ABDOMEN AND PELVIS WITH CONTRAST HISTORY: LOW POTASSIUM. TECHNIQUE: Sequential axial images were obtained from the diaphragms through the ischiorectal fossa after intravenous and oral administration of 100 ml of Omnipaque 300 contrast material. Comparison: 09/08/16. FINDINGS: The visualized lung bases appear normal. The liver appears normal. The gallbladder has been surgically removed. The pancreas and spleen appear normal. The adrenal glands and kidneys appear normal. The small bowel appears normal. The colon is incompletely opacified and distended. There is, however, apparent mucosal wall edema enhancement. Pancolitis cannot be entirely excluded. The uterus and adnexal structures are normal. There is left ovarian cyst. The urinary bladder appears normal. The osseous structures are normal. IMPRESSION: INCOMPLETE DISTENTION OF THE COLON. THERE IS APPARENT DIFFUSE MUCOSAL EDEMA AND ENHANCEMENT. A PANCOLONIC PROCESS CANNOT BE ENTIRELY EXCLUDED SUCH INFECTIOUS, INFLAMMATORY OR ISCHEMIC BOWEL DISEASE. JOB NUMBER: [id number] MTDD
--- NOTE | 2018-03-06 09:31 | Physician Progress Note ---
Subjective - Date Date of Physician Progress Note: 03/06/18 - Subjective Subjective Comment: The patient has not vomited or had a bowel movement over the past 24 hours. She has abdominal pain in the right lower quadrant but has no other complaints. Location: Right Radiation: Abdomen Severity scale (1-10): 5 Quality: Aching Consistency: Constant Improves with: None Worsens with: Medication Associated symptoms: Nausea/vomiting Objective - Vital Signs Vital Signs: Vital Signs - Last 24 Hrs Temp Pulse Pulse Resp BP BP Pulse Ox 03/06/18 08:26 98.6 F 69 18 98/66 99 03/06/18 06:00 97.6 F 75 18 91/61 97 03/06/18 00:00 98.7 F 69 18 99/61 99 03/05/18 20:00 97.8 F 74 18 96/54 99 03/05/18 16:35 97.8 F 74 18 107/72 96 03/05/18 16:16 82 18 100/59 98 03/05/18 12:14 98.4 F 78 16 125/79 97 - General General Appearance: Alert, Oriented x3, Cooperative, No acute distress Limitations: No limitations - Head Head exam: Atraumatic, Normocephalic, Normal inspection - Eye Eye exam: Normal appearance, PERRL - Neck Neck exam: Normal inspection, Full ROM. negative: Tenderness - Respiratory Respiratory exam: Normal lung sounds bilaterally. negative: Respiratory distress - Cardiovascular Cardiovascular Exam: Regular rate, Normal rhythm, Normal heart sounds - GI/Abdominal GI/Abdominal exam: Soft, Tenderness (There is significant lower abdominal tenderness increased in the RLQ.). negative: Rebound, Rigid - Extremities Extremities exam: Normal inspection, Full ROM, Normal capillary refill. negative: Tenderness - Neurological Neurological exam: Alert. negative: Motor sensory deficit Assessment and Plan - Assessment and Plan (1) Nausea & vomiting Current Visit: Yes Status: Acute Base Code: R11.2 - NAUSEA WITH VOMITING, UNSPECIFIED Comment: 03/06/18: - intractable nausea/vomiting due to Crohn's Disease. - clear liquids with advancement of diet as tolerated. - zofran 4mg IVP Q4H PRN, IV Nacl 0.9% @ 100mL/hr. (2) Exacerbation of Crohn's disease Current Visit: Yes Status: Acute Qualifiers: Digestive disease complication type: unspecified complication Qualified Code(s): K50.919 - Crohn's disease, unspecified, with unspecified complications Base Code: K50.90 - CROHN'S DISEASE, UNSPECIFIED, WITHOUT COMPLICATIONS Comment: 03/06/18: - CT abdomen: diffuse colonic edema. - Labs: K+ 2.2--> 3.2 cont to replete, with 40meq PO, - recently discontinued Humira therapy. - start Solumedrol 60mg IV daily, Zofran 4mg Q4H PRN, Protonix 40mg daily and Dilaudid 0.5mg Q4H change to PO [place] PRN for pain control. - iv fluid bolus and cont at rate of 100m/hr - clear liquid diet and advance as tolerated. Gi recommends outpatient barium sallow and cont steroids without taper. Prednisone 40mg daily PO ordered. (3) Hypokalemia Current Visit: Yes Status: Acute Base Code: E87.6 - HYPOKALEMIA Comment: 03/06/18: - Potassium 2.2--> 3.2 replete with 40meq PO. - repeat labs in the morning. (4) DVT prophylaxis Current Visit: No Status: Acute Base Code: [id number] - Comment: 03/06/18: -lovenox 40mg SQ daily (5) Full code status Current Visit: No Status: Acute Base Code: Z78.9 - OTHER SPECIFIED HEALTH STATUS Comment: 03/06/18: - FULL CODE - Disposition Disposition: Pt evaluated by GI and recommend continue dsoe of prednisone at 40mg daily w/o taper. And outpatient barium swallow. Results - Labs Result Diagrams: 03/06/18 06:10 03/06/18 06:10 Labs Last 24 Hours: Laboratory Results - last 24 hr 03/05/18 03/05/18 03/05/18 12:20 12:20 12:20 WBC 4.5 RBC 4.41 Hgb 13.2 Hct 38.3 MCV 86.8 MCH 29.9 MCHC 34.5 RDW 14.0 Plt Count 255 MPV 10.2 Gran % 44.8 L Lymphocytes % 40.9 Monocytes % 7.7 Eosinophils % 6.2 H Basophils % 0.4 ESR Sodium 141 Potassium 2.2 L* Chloride 97 L Carbon Dioxide 28.0 Anion Gap 16.0 BUN 7 Creatinine 0.9 Estimated GFR > 60 Random Glucose 91 Calcium 9.3 Total Bilirubin 0.60 Direct Bilirubin < 0.2 AST 30 ALT 31 Alkaline Phosphatase 53 C-Reactive Protein Total Protein 7.0 Albumin 4.5 Lipase 26 Serum HCG, Qual Negative Urine Color Urine Appearance Urine pH Ur Specific [place] Urine Protein Urine Glucose (UA) Urine Ketones Urine Blood Urine Nitrite Urine Bilirubin Urine Urobilinogen Ur Leukocyte Esterase 03/05/18 03/05/18 03/05/18 12:20 12:20 14:40 WBC RBC Hgb Hct MCV MCH MCHC RDW Plt Count MPV Gran % Lymphocytes % Monocytes % Eosinophils % Basophils % ESR 10 Sodium Potassium Chloride Carbon Dioxide Anion Gap BUN Creatinine Estimated GFR Random Glucose Calcium Total Bilirubin Direct Bilirubin AST ALT Alkaline Phosphatase C-Reactive Protein 0.06 Total Protein Albumin Lipase Serum HCG, Qual Urine Color Yellow Urine Appearance Clear Urine pH 5.5 Ur Specific [place] 1.015 Urine Protein Negative Urine Glucose (UA) Negative Urine Ketones 15 mg/dl H Urine Blood Negative Urine Nitrite Negative Urine Bilirubin Small H Urine Urobilinogen 0.2 Ur Leukocyte Esterase Negative 03/06/18 03/06/18 06:10 06:10 WBC 5.0 RBC 3.78 L Hgb 10.9 L Hct 33.9 L MCV 89.7 MCH 28.8 MCHC 32.2 RDW 14.5 Plt Count 196 MPV 10.5 H Gran % 50.5 Lymphocytes % 38.9 Monocytes % 7.2 Eosinophils % 3.4 Basophils % 0.0 ESR Sodium 143 Potassium 3.2 L Chloride 106 Carbon Dioxide 24.0 Anion Gap 13.0 BUN 4 L Creatinine 0.7 Estimated GFR > 60 Random Glucose 84 Calcium 7.5 L Total Bilirubin Direct Bilirubin AST ALT Alkaline Phosphatase C-Reactive Protein Total Protein Albumin Lipase Serum HCG, Qual Urine Color Urine Appearance Urine pH Ur Specific [place] Urine Protein Urine Glucose (UA) Urine Ketones Urine Blood Urine Nitrite Urine Bilirubin Urine Urobilinogen Ur Leukocyte Esterase DVT/PE Assessment - Risk for VTE Risk for VTE: Yes Risk Level: Moderate Risk Assessment Date: 03/06/18 Risk Assessment Time: 12:53 VTE Orders Placed or Will Be Placed: Yes - Active Medicaitons Current Medications: Current Medications Bupropion HCl (Wellbutrin Sr) 150 mg PO 1800 JUL[facility] Last Admin: 03/05/18 17:45 Dose: 150 mg Enoxaparin Sodium (Lovenox) 40 mg SQ DAILY [facility] Hydromorphone HCl (Dilaudid) 0.5 mg IV Q4H PRN PRN Reason: ANALGESIA Last Admin: 03/05/18 20:35 Dose: 0.5 mg Potassium Chloride/Sodium Chloride (Potassium Chl 40meq/) 40 meq in 1,000 mls @ 100 mls/hr IV Q10H JULISSA Last Admin: 03/06/18 00:08 Dose: 100 mls/hr Lamotrigine (Lamictal) 200 mg PO 1800 [facility] Last Admin: 03/05/18 18:22 Dose: Not Given Methylprednisolone Sodium Succinate (Solu-Medrol) 60 mg IVP DAILY [facility] Non-Formulary Medication (Azathioprine [Imuran]) 100 mg PO 1800 [facility] Last Admin: 03/05/18 18:24 Dose: Not Given Ondansetron HCl (Zofran) 4 mg IVP Q4H PRN PRN Reason: NAUSEA Last Admin: 03/06/18 06:50 Dose: 4 mg Pantoprazole Sodium (Protonix Iv) 40 mg IV DAILY [facility] Last Admin: 03/05/18 17:38 Dose: 40 mg Potassium Chloride (Potassium Chloride) 20 meq PO BID [facility] Last Admin: 03/05/18 21:52 Dose: 20 meq Topiramate (Topiramate) 100 mg PO 1800 [facility] Last Admin: 03/05/18 17:45 Dose: 100 mg AMI Plan - Labs Result Diagrams: 03/06/18 06:10 03/06/18 06:10
[2018-03-06] MEDS: METHYLPREDNISOLONE PF 125MG/VIAL IVP SCH (10:12)
[2018-03-06] MEDS: PANTOPRAZOLE SODIUM IV 40 MG VIAL IV SCH (10:13)
[2018-03-06] MEDS: ENOXAPARIN 40 MG/0.4 ML SYR SQ SCH (10:16)
[2018-03-06] MEDS: HYDROMORPHONE HCL 2 MG/ML VIAL IV PRN ×2 (10:27→15:36)
[2018-03-06] MEDS: POTASSIUM CHLORIDE 20 MEQ/15ML CUP PO SCH ×2 (12:48→22:37)
[2018-03-06] MEDS: TOPIRAMATE 100MG TABLET PO SCH (18:12)
[2018-03-06] MEDS: LAMOTRIGINE 100 MG TABLET PO SCH (18:12)
[2018-03-06] MEDS: AZATHIOPRINE 100 MG PO SCH (18:13)
[2018-03-06] MEDS: BUPROPION HCL 150 MG TAB.SR.12H PO SCH (18:14)
[2018-03-06] MEDS ORDERED: IBUPROFEN 400 MG TABLET PO PRN (19:55)
[2018-03-06 20:17] LABS: URINE APPEARANCE CLEAR; URINE BILIRUBIN NEGATIVE (NEGATIVE); URINE BLOOD NEGATIVE (NEGATIVE); URINE COLOR YELLOW; URINE GLUCOSE (UA) NEGATIVE (NEGATIVE); URINE KETONE 40 mg/dL (NEGATIVE); URINE LEUKOCYTE ESTERASE TRACE (NEGATIVE); URINE NITRITE NEGATIVE (NEGATIVE); URINE PROTEIN NEGATIVE (NEGATIVE); URINE UROBILINOGEN 0.2 E.U./dL (0.20 - 1.00)
[2018-03-06 20:35] LABS: URINE RBC NONE SEEN (NONE SEEN); URINE WBC 0 - 2 (0-2/hpf)
[2018-03-06 20:36] LABS: URINE BACTERIA FEW; URINE EPITHELIAL CELLS 16 - 20 (FEW)
[2018-03-06] MEDS ORDERED: ACETAMINOPHEN WITH CODEINE 5 ML SOLUTION PO PRN (21:55)
[2018-03-06] MEDS ORDERED: FLUCONAZOLE 100 MG TABLET PO ONE (22:00)
[2018-03-07] MEDS: SOD CHLOR 0.9% WITH KCL 40MEQ 40 MEQ/1,000 ML IV.SOLN IV SCH ×2 (06:34→18:04)
[2018-03-07] MEDS: ONDANSETRON HCL IV 4 MG/2 ML VIAL IVP PRN (06:38)
[2018-03-07 08:11] LABS: BLOOD UREA NITROGEN 3 mg/dL (6-20); CREATININE 0.7 mg/dL (0.5-0.9); EST GLOMERULAR FILTRATION RATE > 60 mL/min; GLUCOSE,RANDOM 85 mg/dL (74-109)
[2018-03-07] MEDS: ENOXAPARIN 40 MG/0.4 ML SYR SQ SCH (12:05)
[2018-03-07] MEDS: PANTOPRAZOLE SODIUM IV 40 MG VIAL IV SCH (12:05)
[2018-03-07] MEDS: POTASSIUM CHLORIDE 20 MEQ/15ML CUP PO SCH ×2 (12:05→22:03)
[2018-03-07] MEDS: METHYLPREDNISOLONE PF 125MG/VIAL IVP SCH (12:05)
--- NOTE | 2018-03-07 12:13 | Physician Progress Note ---
Subjective - Date Date of Physician Progress Note: 03/07/18 - Subjective Subjective Comment: The patient has not vomited or had a bowel movement over the past 48 hrs but complains of nausea this morning. She still has some abdominal pain but has not been able to tolerate Tylenol #3. Location: Abdomen Radiation: Abdomen Severity scale (1-10): 7 Quality: Aching Consistency: Constant Improves with: Medication Objective - Vital Signs Vital Signs: Vital Signs - Last 24 Hrs Temp Pulse Resp BP Pulse Ox 03/07/18 09:25 98.9 F 77 16 89/59 98 03/07/18 09:00 18 03/07/18 06:00 79 18 03/06/18 23:30 98.8 F 79 18 102/68 97 03/06/18 20:00 97.7 F 78 18 103/68 98 03/06/18 18:00 98.8 F 71 18 102/64 97 03/06/18 14:00 99.0 F 81 18 94/66 97 - General General Appearance: Alert, Oriented x3, Cooperative, No acute distress Limitations: No limitations - Head Head exam: Atraumatic, Normocephalic, Normal inspection - Eye Eye exam: Normal appearance, PERRL - Neck Neck exam: Normal inspection, Full ROM. negative: Tenderness - Respiratory Respiratory exam: Normal lung sounds bilaterally. negative: Respiratory distress - Cardiovascular Cardiovascular Exam: Regular rate, Normal rhythm, Normal heart sounds - GI/Abdominal GI/Abdominal exam: Soft, Tenderness (There is significant lower abdominal tenderness increased in the RLQ.). negative: Rebound, Rigid - Extremities Extremities exam: Normal inspection, Full ROM, Normal capillary refill. negative: Tenderness - Neurological Neurological exam: Alert. negative: Motor sensory deficit Assessment and Plan - Assessment and Plan (1) Nausea & vomiting Current Visit: Yes Status: Acute Base Code: R11.2 - NAUSEA WITH VOMITING, UNSPECIFIED Comment: 03/07/18: - intractable nausea/vomiting due to Crohn's Disease. - resolved - clear liquids with advancement of diet as tolerated. - zofran 4mg IVP Q4H PRN, IV Nacl 0.9% @ 100mL/hr. (2) Exacerbation of Crohn's disease Current Visit: Yes Status: Acute Qualifiers: Digestive disease complication type: unspecified complication Qualified Code(s): K50.919 - Crohn's disease, unspecified, with unspecified complications Base Code: K50.90 - CROHN'S DISEASE, UNSPECIFIED, WITHOUT COMPLICATIONS Comment: 03/07/18: - CT abdomen: diffuse colonic edema. - Labs: K+ 2.2--> 3.2 --> 3.5 cont to replete, with 40meq PO, - recently discontinued Humira therapy. - start Solumedrol 60mg IV daily, Zofran 4mg Q4H PRN, Protonix 40mg daily and Dilaudid 0.5mg Q4H change to PO [place] PRN for pain control. - iv fluid bolus and cont at rate of 100m/hr - clear liquid diet and advance as tolerated. Gi recommends outpatient barium sallow and cont steroids without taper. Prednisone 40mg daily PO ordered. (3) Hypokalemia Current Visit: Yes Status: Acute Base Code: E87.6 - HYPOKALEMIA Comment: 03/06/18: - resolving - Potassium 2.2--> 3.2-->3.5 replete with 40meq PO. - repeat labs in the morning. (4) DVT prophylaxis Current Visit: No Status: Acute Base Code: [id number] - Comment: 03/06/18: -lovenox 40mg SQ daily d/c - pneumatic stalkings while in bed and ambulation. (5) Full code status Current Visit: No Status: Acute Base Code: Z78.9 - OTHER SPECIFIED HEALTH STATUS Comment: 03/07/18: - FULL CODE - Disposition Disposition: Pt evaluated by GI and recommend continue dsoe of prednisone at 40mg daily w/o taper. And outpatient barium swallow. Results - Labs Result Diagrams: 03/06/18 06:10 03/07/18 07:50 Labs Last 24 Hours: Laboratory Results - last 24 hr 03/06/18 03/07/18 19:56 07:50 Sodium 143 Potassium 3.5 Chloride 109 H Carbon Dioxide 23.0 Anion Gap 11.0 BUN 3 L Creatinine 0.7 Estimated GFR > 60 Random Glucose 85 Calcium 6.8 L Urine Color Yellow Urine Appearance Clear Urine pH 6.0 Ur Specific [place] 1.015 Urine Protein Negative Urine Glucose (UA) Negative Urine Ketones 40 mg/dl H Urine Blood Negative Urine Nitrite Negative Urine Bilirubin Negative Urine Urobilinogen 0.2 Ur Leukocyte Esterase Trace H Urine RBC None seen Urine WBC 0 - 2 Ur Epithelial Cells 16 - 20 Urine Bacteria Few DVT/PE Assessment - Risk for VTE Risk for VTE: No Risk Level: Moderate Risk Assessment Date: 03/06/18 Risk Assessment Time: 12:53 VTE Orders Placed or Will Be Placed: Yes - Active Medicaitons Current Medications: Current Medications Acetaminophen/Codeine Phosphate (Tylenol #3) 15 ml PO Q4H PRN PRN Reason: PAIN - MILD (1-4) Last Admin: 03/06/18 22:34 Dose: 15 ml Bupropion HCl (Wellbutrin Sr) 150 mg PO 1800 [facility] Last Admin: 03/06/18 18:14 Dose: 150 mg Enoxaparin Sodium (Lovenox) 40 mg SQ DAILY [facility] Last Admin: 03/07/18 12:05 Dose: Not Given Hydromorphone HCl (Dilaudid) 0.5 mg IV Q4H PRN PRN Reason: ANALGESIA Last Admin: 03/06/18 15:36 Dose: 0.5 mg Potassium Chloride/Sodium Chloride (Potassium Chl 40meq/) 40 meq in 1,000 mls @ 100 mls/hr IV Q10H [facility] Last Admin: 03/07/18 06:34 Dose: 100 mls/hr Ibuprofen (Motrin 400mg) 400 mg PO Q4H PRN PRN Reason: PAIN - MILD (1-4) Last Admin: 03/06/18 20:12 Dose: 400 mg Lamotrigine (Lamictal) 200 mg PO 1800 [facility] Last Admin: 03/06/18 18:12 Dose: 200 mg Methylprednisolone Sodium Succinate (Solu-Medrol) 60 mg IVP DAILY [facility] Last Admin: 03/07/18 12:05 Dose: 60 mg Non-Formulary Medication (Azathioprine [Imuran]) 100 mg PO 1800 [facility] Last Admin: 03/06/18 18:13 Dose: 100 mg Ondansetron HCl (Zofran) 4 mg IVP Q4H PRN PRN Reason: NAUSEA Last Admin: 03/07/18 06:38 Dose: 4 mg Pantoprazole Sodium (Protonix Iv) 40 mg IV DAILY [facility] Last Admin: 03/07/18 12:05 Dose: 40 mg Potassium Chloride (Potassium Chloride) 20 meq PO BID [facility] Last Admin: 03/07/18 12:05 Dose: 20 meq Topiramate (Topiramate) 100 mg PO 1800 [facility] Last Admin: 03/06/18 18:12 Dose: 100 mg AMI Plan - Labs Result Diagrams: 03/06/18 06:10 03/07/18 07:50
[2018-03-07] MEDS: HYDROCODONE/APAP 5/325MG TABLET PO PRN ×2 (13:05→18:24)
[2018-03-07] MEDS: BUPROPION HCL 150 MG TAB.SR.12H PO SCH (18:04)
[2018-03-07] MEDS: LAMOTRIGINE 100 MG TABLET PO SCH (18:05)
[2018-03-07] MEDS: TOPIRAMATE 100MG TABLET PO SCH (18:05)
[2018-03-07] MEDS: AZATHIOPRINE 100 MG PO SCH (18:06)
[2018-03-08] MEDS: SOD CHLOR 0.9% WITH KCL 40MEQ 40 MEQ/1,000 ML IV.SOLN IV SCH (05:17)
[2018-03-08 06:36] LABS: BLOOD UREA NITROGEN 4 mg/dL (6-20); CREATININE 0.6 mg/dL (0.5-0.9); EST GLOMERULAR FILTRATION RATE > 60 mL/min; GLUCOSE,RANDOM 93 mg/dL (74-109)
[2018-03-08] MEDS: ONDANSETRON HCL IV 4 MG/2 ML VIAL IVP PRN (07:56)
[2018-03-08] MEDS: HYDROCODONE/APAP 5/325MG TABLET PO PRN (09:58)
[2018-03-08] MEDS: METHYLPREDNISOLONE PF 125MG/VIAL IVP SCH (09:58)
[2018-03-08] MEDS: POTASSIUM CHLORIDE 20 MEQ/15ML CUP PO SCH (09:59)
[2018-03-08] MEDS: PANTOPRAZOLE SODIUM IV 40 MG VIAL IV SCH (09:59)
[2018-03-08] MEDS: ENOXAPARIN 40 MG/0.4 ML SYR SQ SCH (09:59)
--- NOTE | 2018-03-08 10:57 | Discharge Summary ---
Providers Discharge Summary Date: 03/08/18 Date of admission: 03/05/18 16:18 Attending physician: MICKY AMARAL Primary care physician: LINK HODGES D.O. Consults: Consult Orders 03/05/18 15:47 Consult NOW Consulting Provider: ALESSANDRA VERDUGO Physician Instructions: Please eval in Hosp. Friday Reason For Exam: Crohn's Flare Physical Exam - Vital Signs Vital Signs: Vital Signs - Last 24 Hrs Temp Pulse Resp BP Pulse Ox 03/08/18 09:00 98.1 F 79 16 96/72 100 03/08/18 00:46 97.7 F 63 18 102/70 97 03/07/18 20:00 98.0 F 87 18 105/73 97 03/07/18 18:00 98.6 F 77 18 103/69 98 03/07/18 14:00 99.0 F 77 18 91/62 98 - General General Appearance: Alert, Oriented x3, Cooperative, No acute distress Limitations: No limitations - Head Head exam: Atraumatic, Normocephalic, Normal inspection - Eye Eye exam: Normal appearance, PERRL - Neck Neck exam: Normal inspection, Full ROM. negative: Tenderness - Respiratory Respiratory exam: Normal lung sounds bilaterally. negative: Respiratory distress - Cardiovascular Cardiovascular Exam: Regular rate, Normal rhythm, Normal heart sounds Peripheral Pulses: 3+: Radial (R), Radial (L), Dorsalis Pedis (R), Dorsalis Pedis (L) - GI/Abdominal GI/Abdominal exam: Soft, Tenderness (decreased abdominal pain, ). negative: Rebound, Rigid - Extremities Extremities exam: Normal inspection, Full ROM, Normal capillary refill. negative: Tenderness - Neurological Neurological exam: Alert. negative: Motor sensory deficit Hospitalization - Hospitalization Admission Diagnosis: Intractable nausea and vomiting - Problem List/Discharge Diagnosis (1) Nausea & vomiting Current Visit: Yes Status: Acute Base Code: R11.2 - NAUSEA WITH VOMITING, UNSPECIFIED Comment: 03/08/18: - intractable nausea/vomiting due to Crohn's Disease. - resolved - clear liquids with advancement of diet as tolerated. - zofran 4mg IVP Q4H PRN, IV Nacl 0.9% @ 100mL/hr. d/c (2) Exacerbation of Crohn's disease Current Visit: Yes Status: Acute Discharge Diagnosis: Digestive disease complication type: unspecified complication Qualified Code(s): K50.919 - Crohn's disease, unspecified, with unspecified complications Base Code: K50.90 - CROHN'S DISEASE, UNSPECIFIED, WITHOUT COMPLICATIONS Comment: 03/08/18: - CT abdomen: diffuse colonic edema. - Labs: K+ 2.2--> 3.2 --> 3.5--> 4.4 cont to replete, with 40meq PO, - recently discontinued Humira therapy. - start Solumedrol 60mg IV daily, Zofran 4mg Q4H PRN, Protonix 40mg daily and Dilaudid 0.5mg Q4H change to PO [place] PRN for pain control. - iv fluid bolus and cont at rate of 100m/hr - clear liquid diet and advance as tolerated. Gi recommends outpatient barium sallow and cont steroids without taper. Prednisone 40mg daily PO ordered. (3) Hypokalemia Current Visit: Yes Status: Acute Base Code: E87.6 - HYPOKALEMIA Comment: 03/08/18: - resolved - Potassium 2.2--> 3.2-->3.5--> 4.5 - repeat labs in the morning. (4) DVT prophylaxis Current Visit: No Status: Acute Base Code: [id number] - Comment: 03/08/18: -lovenox 40mg SQ daily d/c - pneumatic stalkings while in bed and ambulation. (5) Full code status Current Visit: No Status: Acute Base Code: Z78.9 - OTHER SPECIFIED HEALTH STATUS Comment: 03/08/18: - FULL CODE - Disposition D/C today, outpatient barium swallow. - Hospitalization Course Hospital Course: Ms. Hidalgo is a 37 y/o female with complaint of nausea, vomiting and acute abdominal pain which began about 2 weeks ago. The patient has a history of Crohn 's disease and was on therapy with Humira but stopped it about 4 months ago due to reaction. She follows with her GI doctor, Dr. Verdugo who started her on a tapering dose of Prednisone which she has not been able to keep down since the vomiting began. The patient also notes seeing blood on her tissue paper but none in stool since 3 days ago and she has had increasing tenderness of the right lower abdomen. She called her GI doctor and was instructed to come into the ED. On presentation to the ED the patient had several episodes of vomiting which eventually resolved with IV medication. However she still complained of unremitting abdominal pain. Her labs were unremarkable with exception of markedly low potassium and she is stable. She is admitted for pain control and IV fluid hydration. 03/06/18-03/08/18: The patient shown signs of improvement with her abdominal pain and no vomiting since admission. She was kept on clear liquid diet with slow advancement and IV steroids. GI consult was placed and recommendation was for continued bowel rest and IV steroids with outpatient follow up for initiation of Remicade. The patient's potassium was 2.2 on admission and she was given 80 meqs of Klor-con on admission which improved to 3.2. She was given continuous potassium and labs eventually improved to 4.5 on day of discharge. The patient's diet was advanced to soft diet which was not well tolerated and she had nausea and increased pain of the right lower abdomen and epigastrium. Diet was downgraded to clear liquids and medication was changed to oral Tylenol #3 at the patient's request which was eventually discontinued due to poor tolerance. [place] 5/325mg was better tolerated and the patient's diet advanced, and she was able to have a full diet this morning. PCP: Dr. Hodges Procedures: Imaging and X-Rays 03/05/18 12:24 ABDOMEN/PELVIS W CONTRAST [CT] Stat Cardiology Procedures 03/05/18 12:59 EKG NOW 03/05/18 15:53 Hydropulper NOW Abnormal Labs: Abnormal Lab Results 03/05/18 03/05/18 03/05/18 Range/Units 12:20 12:20 14:40 RBC (3.80-5.40) M/uL Hgb (11.6-16.0) gm/dl Hct (35.0-47.0) % MPV (7.4-10.4) fl Gran % 44.8 L (47-80) % Eosinophils % 6.2 H (0-6) % Potassium 2.2 L* (3.4-4.5) mmol/L Chloride 97 L (98-107) mmol/L BUN (6-20) mg/dL Calcium (8.6-10.0) mg/dL Urine Ketones 15 mg/dl H (NEGATIVE) Urine Bilirubin Small H (NEGATIVE) Ur Leukocyte Esterase (NEGATIVE) 03/06/18 03/06/18 03/06/18 Range/Units 06:10 06:10 19:56 RBC 3.78 L (3.80-5.40) M/uL Hgb 10.9 L (11.6-16.0) gm/dl Hct 33.9 L (35.0-47.0) % MPV 10.5 H (7.4-10.4) fl Gran % (47-80) % Eosinophils % (0-6) % Potassium 3.2 L (3.4-4.5) mmol/L Chloride (98-107) mmol/L BUN 4 L (6-20) mg/dL Calcium 7.5 L (8.6-10.0) mg/dL Urine Ketones 40 mg/dl H (NEGATIVE) Urine Bilirubin (NEGATIVE) Ur Leukocyte Esterase Trace H (NEGATIVE) 03/07/18 03/08/18 Range/Units 07:50 06:10 RBC (3.80-5.40) M/uL Hgb (11.6-16.0) gm/dl Hct (35.0-47.0) % MPV (7.4-10.4) fl Gran % (47-80) % Eosinophils % (0-6) % Potassium (3.4-4.5) mmol/L Chloride 109 H 109 H (98-107) mmol/L BUN 3 L 4 L (6-20) mg/dL Calcium 6.8 L 7.2 L (8.6-10.0) mg/dL Urine Ketones (NEGATIVE) Urine Bilirubin (NEGATIVE) Ur Leukocyte Esterase (NEGATIVE) Condition at Discharge: (2) Stable Discharge Medications - Discharge Medications Prescriptions: Hydrocodone/APAP 5/325Mg [[place] 5Mg/325Mg] 1 each PO Q6H PRN #14 tab PRN Reason: Abdominal Pain Ondansetron HCl [Zofran] 4 mg PO Q4H PRN #14 tablet PRN Reason: Nausea Pantoprazole Sodium [Protonix] 40 mg PO DAILY #14 tablet. Prednisone [Prednisone 20Mg] 40 mg PO DAILY 10 Days #20 tab Home Medications: Ambulatory Orders Lamotrigine [Lamictal] 200 mg PO DAILY 09/08/16 [Last Taken 09/17/17] Ondansetron [Zofran Odt] 4 mg PO Q4H PRN #20 tab.rapdis 09/24/16 [Last Taken Unknown] Azathioprine [Imuran] 50 mg PO DAILY 09/17/17 [Last Taken 09/17/17] Bupropion HCl [Bupropion Xl] 1 - 2 tab PO DAILY 09/17/17 [Last Taken 09/17/17] Topiramate 100Mg Tablet [Topiramate] 100 mg PO DAILY 03/05/18 [Last Taken Unknown] Hydrocodone/APAP 5/325Mg [[place] 5Mg/325Mg] 1 each PO Q6H PRN #14 tab 03/08/18 [ Last Taken Unknown] Ondansetron HCl [Zofran] 4 mg PO Q4H PRN #14 tablet 03/08/18 [Last Taken Unknown ] Pantoprazole Sodium [Protonix] 40 mg PO DAILY #14 tablet. 03/08/18 [Last Taken Unknown] Prednisone [Prednisone 20Mg] 40 mg PO DAILY 10 Days #20 tab 03/08/18 [Last Taken Unknown] Discharge Plan - Discharge Instructions Activity at Discharge: Resume Usual Activities As Tolerated Diet at Discharge: Advance to Usual Diet Additional Instructions: Medications to be taken as prescribed: Protonix 40mg daily x 10 days. Zofran 4mg every 4 hours as needed for nausea. Prednisone 40mg, ( take two 20mg tabs daily) for 10 days. Do not taper dosing. [place] 5/325mg every 6 hours as needed for pain. Please follow up with your PCP: Dr. Hodges within 5-[address] Verdugo regarding initiation of Remicaide for your Crohn's. Your Return to work document has been dated for Friday03/10/18. If any acute concerns return to the nearest ED. Quality Measures - Quality Measures Quality Measures: Documentation of Current Medications in Medical Record, Screening for High Blood Pressure and F/U Documented - Current Medications Quality Measure: Measure #130: Documentation of Current Medications Documentation of Current Medications: <Current Medications Documented/Reviewed> [[id number]] - Blood Pressure Screening Quality Measure: Screening for High Blood Pressure and Follow-Up Documented Does Patient Have Any of the Following: No Blood Pressure Classification: Normal BP Reading Systolic Measurement: 98 Diastolic Measurement: 66 Screening for High Blood Pressure: < Normal BP, F/U Not Required > [[id number]] - Elder Abuse Suspicion Index EASI Reference Information: Yeyo ESTEBAN, Reena C, Fili D, Theodora Hopkins.Development and validation of a tool to assist physicians identification of elder abuse: The Elder Abuse Suspicion Index (EASI ). Journal of Elder Abuse and Neglect, 2008; 20 (3): 276-300.
--- NOTE | 2018-03-09 07:44 | Medical Records Consult ---
DATE OF CONSULTATION: 03/06/2018 REASON FOR CONSULTATION: Crohn disease exacerbation. HISTORY OF PRESENT ILLNESS: This is a 37-year-old female with long-term history of Crohn disease for which she initially took Humira but it looks like she could not tolerate it properly and went off it. She was recently seen and has now been asked to go on Remicade. Presented to the hospital with complaints of difficulty swallowing with intermittent episodes of nausea and vomiting. She denies any fever or any chills. She also denies any odynophagia. She indicated that it is not that she cannot swallow, it is just that the food goes down and she has no appetite. She has had diarrhea now up to 8 time a day with no blood but does have mucus in it. PAST MEDICAL HISTORY: Significant for migraine headaches, asthma, Crohn disease, arthritis, depression. FAMILY HISTORY: Noncontributory. REVIEW OF SYSTEMS: As documented in the HPI and on the chart. PHYSICAL EXAMINATION: GENERAL: A pleasant woman in no apparent distress. VITAL SIGNS: Blood pressure 120/80, heart rate 74, respiration 18. HEENT: She is not pale or jaundiced. . NECK: Supple with no palpable mass or thyromegaly. LUNGS: Clear to auscultation bilaterally with no wheezes or rales. HEART: S1, S2. No gallop or murmur. ABDOMEN: Soft. Mildly diffusely tender but no rebound tenderness and no palpable masses or organomegaly. Bowel sounds are present and normal active. EXTREMITIES: No clubbing, cyanosis, or edema. NEUROLOGIC: She is alert and oriented. No focal deficits grossly. LABORATORY DATA: Complete blood count was normal. Comprehensive panel was potassium 2.2. RADIOGRAPHIC DATA: She had a CT scan done that showed diffuse thickening of the colon. IMPRESSION: A 37-year-old female with what appears to be intermittent episodes of difficulty swallowing that she described as spasm that does not allow any food to get into the stomach. She also has a history of Crohn disease, possibly a Crohn disease exacerbation. PLAN: 1. We will obtain a barium swallow. 2. Continue on steroids for Crohn disease and we will be seeing her back in the office for possible Remicade infusion at some point. Thank you for allowing me to participate in the care of this patient. CC: MD TOYA Iqbla
== END 2018-03-08 13:15 | disposition home or self-care (01) | DRG 387 ==
LOC: ER 12:02 → MEDSURG 16:18
PROVIDERS: ADMIT Internal Medicine; ATTEND Internal Medicine
DX: K50.919 Crohn's disease, unspecified, with unspecified complications (principal); E87.6 Hypokalemia; R19.7 Diarrhea, unspecified; R10.84 Generalized abdominal pain; J45.909 Unspecified asthma, uncomplicated; Z85.068 Personal history of other malignant neoplasm of small intestine; Z87.820 Personal history of traumatic brain injury
CPT/HCPCS: 74177; 80048; 80076; 81001; 81003; 83690; 84703; 85025; 85651; 86140; 93005; 93010; 96361; 96375; 96376; 99223; 99233; 99239; 99285; C9113; J1650; J2405; J2930; J3490; J7030

== ENCOUNTER 2018-04-03 00:32 | Observation (INO) | payer BC ==
[2018-04-03] MEDS ORDERED: ASPIRIN 81 MG CHEWABLE TABLET PO ONE (00:47)
[2018-04-03 01:23] LABS: BASO % 0.2 % (0-6); EOS % 4.7 % (0-6); GRAN % 46.5 % (47-80); HEMATOCRIT 39.4 % (35.0-47.0); HEMOGLOBIN 13.1 gm/dl (11.6-16.0); LYMPH % 39.5 % (16-45); MEAN CELL VOLUME 88.9 fl (81-97); MEAN CORPUSCULAR HEMOGLOBIN 29.6 pg (27-33); MEAN CORPUSCULAR HGB CONC 33.2 g/dl (32-36); MEAN PLATELET VOLUME 10.4 fl (7.4-10.4); MONO % 9.1 % (0-9); PLATELET COUNT 311 K/uL (130-400); RED BLOOD COUNT 4.43 M/uL (3.80-5.40); RED CELL DISTRIBUTION WIDTH 15.5 % (11.5-14.5); WHITE BLOOD COUNT W/O DIFF 4.7 K/uL (4.2-12.2)
[2018-04-03 01:27] LABS: BLOOD UREA NITROGEN 4 mg/dL (6-20); CREATININE 0.9 mg/dL (0.5-0.9); EST GLOMERULAR FILTRATION RATE > 60 mL/min
[2018-04-03 01:30] LABS: GLUCOSE,RANDOM 94 mg/dL (74-109)
[2018-04-03 01:33] LABS: CREATINE PHOSPHOKINASE 55 U/L (26-192)
[2018-04-03] MEDS ORDERED: POTASSIUM CHLORIDE 20 MEQ TABLET PO ONE (01:35)
[2018-04-03] MEDS ORDERED: SOD CHLOR 0.9% WITH KCL 40MEQ 40 MEQ/1,000 ML IV.SOLN IV ONE (01:36)
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
[2018-04-03] MEDS ORDERED: POTASSIUM CHLORIDE 20 MEQ/15ML CUP PO ONE ×2 (02:05→07:36)
[2018-04-03] MEDS ORDERED: HYDROCODONE/APAP 5/325MG TABLET PO PRN (02:56)
[2018-04-03] MEDS ORDERED: ACETAMINOPHEN 500 MG TABLET PO PRN (02:56)
[2018-04-03] MEDS ORDERED: TEMAZEPAM 15 MG CAPSULE PO PRN (02:56)
[2018-04-03] MEDS ORDERED: ONDANSETRON 4 MG ODT TABLET PO PRN (02:56)
[2018-04-03] MEDS ORDERED: NITROGLYCERIN 0.4MG SL TABLET #25 BTL SL PRN (02:56)
[2018-04-03] MEDS ORDERED: ONDANSETRON 4 MG ODT TABLET SL PRN (03:15)
[2018-04-03] MEDS ORDERED: PANTOPRAZOLE SODIUM 40 MG TABLET PO SCH (07:00)
[2018-04-03 07:19] LABS: BLOOD UREA NITROGEN 5 mg/dL (6-20); CREATININE 0.8 mg/dL (0.5-0.9); EST GLOMERULAR FILTRATION RATE > 60 mL/min; GLUCOSE,RANDOM 91 mg/dL (74-109)
[2018-04-03] MEDS ORDERED: PNEUM 23-VAL ADULT IM ONE (10:00)
[2018-04-03] MEDS ORDERED: POTASSIUM CHLORIDE 20 MEQ TABLET PO SCH (10:00)
[2018-04-03] MEDS ORDERED: ASPIRIN 325 MG TAB ENTERIC-COATED PO SCH (10:00)
[2018-04-03] MEDS ORDERED: PNEUM 13-VAL/PF 0.5 ML IM ONE (10:00)
[2018-04-03] MEDS ORDERED: PREDNISONE 20 MG TAB PO SCH (10:00)
--- NOTE | 2018-04-03 12:14 | Discharge Note ---
VTE H&P Assessment - Risk for VTE Risk for VTE: No Risk Level: Very Low Risk Assessment Date: 04/03/18 Risk Assessment Time: 12:08 VTE Orders Placed or Will Be Placed: No VTE Reason for No Prophylaxis: Not Indicated Discharge Medications - Discharge Medications Home Medications: Ambulatory Orders Lamotrigine [Lamictal] 200 mg PO DAILY 09/08/16 [Last Taken 09/17/17] Ondansetron [Zofran Odt] 4 mg PO Q4H PRN #20 tab.rapdis 09/24/16 [Last Taken Unknown] Azathioprine [Imuran] 100 mg PO DAILY 09/17/17 [Last Taken 09/17/17] Bupropion HCl [Bupropion Xl] 1 - 2 tab PO DAILY 09/17/17 [Last Taken 09/17/17] Topiramate 100Mg Tablet [Topiramate] 100 mg PO DAILY 03/05/18 [Last Taken Unknown] Ondansetron HCl [Zofran] 4 mg PO Q4H PRN #14 tablet 03/08/18 [Last Taken Unknown ] Pantoprazole Sodium [Protonix] 40 mg PO DAILY #14 tablet. 03/08/18 [Last Taken Unknown] Acetaminophen [Tylenol 500Mg Tab] 1,000 mg PO Q6H PRN tablet 04/03/18 [Last Taken Unknown] Potassium Chloride [Klor-Con Sprinkle] 10 meq PO DAILY #7 capsule.er 04/03/18 [ Last Taken Unknown] Discharge Note - Date Date of Discharge Note: 04/03/18 Disposition: Home, Self-Care Condition: (1) Good Additional Instructions: follow up with Dr. Posey in 5 days obtain outpatient BMP and mg level on apr 06 please give her an order for this diagnosis electrolyte imbalance, hypokalemia please give list of foods high in potassium and have her eat as many as possible. Prescriptions: Potassium Chloride [Klor-Con Sprinkle] 10 meq PO DAILY #7 capsule.er Forms: Patient Portal Access Activity at Discharge: Increase Activity as Tolerated Diet at Discharge: Regular Diet
--- NOTE | 2018-04-03 16:40 | Discharge Summary ---
DATE: 04/03/2018 at 12:26 p.m. DISCHARGE DIAGNOSES: 1. Hyperventilation. 2. Chest pain secondary to hyperventilation. 3. Hypokalemia. 4. Crohn disease. 5. Skin infection left breast and on Bactrim. 6. History of migraines. 7. History of asthma. 8. Her potassium in the emergency department was 2.1. Potassium this point was 3.2. Will need an outpatient potassium on 04/06/2018. ATTENDING PHYSICIAN: Gab Dominguez DO REASON FOR HOSPITALIZATION: The patient with hyperventilation and chest pain. Evaluated in the emergency department by Dr. Sullivan. Potassium was 2.1. Admitted for serial cardiac enzymes, serial EKGs, and further evaluation of her potassium. Oral potassium and IV potassium started in the emergency department. SIGNIFICANT FINDINGS: Her potassium this morning was 3.2. Cardiac enzymes were negative. EKGs were no acute changes. Chest x-ray was done. Negative for acute findings. Rhythm strips throughout the night were benign. THERAPY PROVIDED: The patient was given 40 mEq of oral potassium in the emergency department. She was given IV normal saline potassium with 40 mEq/1000 mL. She got one bag of fluid at 150 mL/hour. She was also given another 40 mEq of oral potassium this morning after the finding of 3.2 came back. HOSPITAL COURSE: The patient was uneventful, doing well, walking around the room without difficulties. CONDITION ON DISCHARGE: Much improved. Discussed taking oral potassium. She states that she has a hard time taking pills. Recommended she use either powder or looking at her chart, I decided to go with the sprinkles. She could sprinkle the pills on applesauce and take that daily one dose for 7 days. Follow up with Dr. Posey if she needs more than this after her outpatient potassium is drawn. Also, we will recommend her eating more foods that are high in potassium. She stated she could not eat bananas. We will give her a list of other foods that have potassium in them. DISCHARGE INSTRUCTIONS: Follow up with Dr. Posey in 5 days. Use potassium chloride 10 mEq sprinkles once a day for 7 days. Continue her home medications of Topamax 100 mg daily, Lamictal 200 mg daily, Wellbutrin 300 mg daily, Imuran 100 mg daily, Bactrim double strength b.i.d. until the prescription is gone. [facility]
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
[2018-04-03] MEDS ORDERED: LAMOTRIGINE 100 MG TABLET PO SCH (18:00)
[2018-04-03] MEDS ORDERED: BUPROPION HCL 150 MG TAB.SR.12H PO SCH (18:00)
[2018-04-03] MEDS ORDERED: TOPIRAMATE 100MG TABLET PO SCH (18:00)
[2018-04-03] MEDS ORDERED: AZATHIOPRINE 100 MG PO SCH (18:00)
--- NOTE | 2018-04-06 06:21 | RADIOLOGY REPORT ---
DATE: 04/03/2018 at 1:49 a.m. EXAM: TWO-VIEW CHEST. HISTORY: Chest pain. Possible panic attack. TECHNIQUE: PA and lateral views. COMPARISON: PA chest dated 04/04/2016. FINDINGS: Heart size is normal, projecting smaller than on the prior study. New horizontal metallic, dumbbell-shaped densities are seen overlying the lung bases anteriorly apparently within the breasts, likely representing periareolar ornamental devices. No definite acute infiltrate seen. No pleural effusion or pneumothorax evident. Mild thoracic dextroscoliosis. IMPRESSION: 1. MILD THORACIC DEXTROSCOLIOSIS. 2. NO DEFINITE ACUTE INFILTRATE IDENTIFIED. JOB NUMBER: [id number] MTDD
== END 2018-04-03 13:44 | disposition home or self-care (01) ==
LOC: ER 00:32 → MEDSURG 02:23 → INTOOBSV 02:23 → OBSVTOIN 02:23
PROVIDERS: ADMIT Emergency Medicine; ATTEND Emergency Medicine
DX: E87.6 Hypokalemia (principal); R07.89 Other chest pain; K50.90 Crohn's disease, unspecified, without complications; Z87.828 Personal history of other (healed) physical injury and trauma; Z87.19 Personal history of other diseases of the digestive system
CPT/HCPCS: 99285 ×2; 96374; 82550; 85025; 82553; 80048; 84484; 85379; 71046; 93005; 93010; G0378; 99220

== ENCOUNTER 2019-10-19 16:03 | Emergency (ER) | payer OTHER ==
[2019-10-19 17:12] LABS: ABSOLUTE NEUTROPHIL COUNT 2.66; BASO % 0.2 % (0-6); EOS % 2.2 % (0-6); GRAN % 53.5 % (47-80); HEMATOCRIT 44.5 % (35.0-47.0); HEMOGLOBIN 14.4 gm/dl (11.6-16.0); LYMPH % 32.5 % (16-45); MEAN CELL VOLUME 91.2 fl (81-97); MEAN CORPUSCULAR HEMOGLOBIN 29.5 pg (27-33); MEAN CORPUSCULAR HGB CONC 32.4 g/dl (32-36); MEAN PLATELET VOLUME 8.9 fl (7.4-10.4); MONO % 11.6 % (0-9); PLATELET COUNT 315 K/uL (130-400); RED BLOOD COUNT 4.88 M/uL (3.80-5.40); RED CELL DISTRIBUTION WIDTH 14.1 % (11.5-14.5)
--- NOTE | 2019-10-19 17:12 | Emergency Department Record ---
History of Present Illness - General Source: Patient Mode of Arrival: Ambulatory - History of Present Illness Initial Comments: pt states she has not eaten in 3 days. she has ap and is distended. she states it feels like her previous bowel obstruction. she has crohns. she has nausea but no vomiting. she recently was in [facility]. she has watery diarrhea MD Complaint: Abdominal pain -: Days(s) Location: Periumbilical, LLQ Severity: Mild Severity scale (1-10): 4 Quality: Cramping Consistency: Intermittent Context: Foreign travel Associated Symptoms: Nausea - Related Data LMP Date: 10/12/19 Patient : No <Roz Sullivan - Last Filed: 10/19/19 19:27> <BELIA EASON - Last Filed: 10/19/19 21:20> - General Stated Complaint: ABD PAIN/HAVENT ATE IN 3 DAYS Time Seen by Provider: 10/19/19 16:43 - Related Data Allergies Allergy/AdvReac Type Severity Reaction Status Date / Time gluten Allergy ABDOMINAL Verified 10/19/19 16:19 PAIN latex Allergy ITCHING Verified 10/19/19 16:19 epinephrine AdvReac Mild hypotension Verified 10/19/19 16:19 Travel/Exposure Screening - Travel/Exposure Within Last 30 Days Have you traveled within the last 30 days?: Yes Additional Travel Detail:: [place] - Travel/Exposure Within Last Year Have you traveled outside the [place] in the last year?: Yes Location Detail:: [place] - Additonal Travel/Exposure Details Have you been exposed to anyone with a communicable illness?: No - Travel Symptoms Symptom Screening: Headache, Diarrhea, Stomach Pain, Lack of Appetite - Additional Travel Comment Additional Travel/Exposure Comment: pt reports going to [place] via [place] in last month <Roz Sullivan - Last Filed: 10/19/19 19:27> Review of Systems Constitutional: Reports: Weakness. Denies: Chills, Fever, Malaise, Night sweats, Weight change Eyes: Denies: Eye discharge, Eye pain, Vision change ENT: Denies: Congestion, Dental pain, Ear pain, Epistaxis Respiratory: Denies: Cough, Dyspnea, Hemoptysis Cardiovascular: Denies: Arrhythmia, Chest pain, Dyspnea on exertion, Orthopnea, Palpitations, Paroxysmal nocturnal dyspnea Endocrine: Reports: Fatigue. Denies: Heat or cold intolerance, Polydipsia, Polyuria Gastrointestinal: Reports: Abdominal pain, Diarrhea, Nausea. Denies: Consti pation, Hematemesis, Hematochezia, Melena, Vomiting Genitourinary: Denies: Discharge, Dyspareunia, Dysuria, Frequency, Hematuria Musculoskeletal: Denies: Arthralgia Skin: Denies: Bruising, Change in color, Change in hair/nails Neurological: Denies: Abnormal gait, Confusion, Headache, Seizure, Tingling, Tremors Psychiatric: Denies: Anxiety, Auditory hallucinations, Homicidal thoughts, Suicidal thoughts, Visual hallucinations Hematological/Lymphatic: Denies: Anemia, Blood Clots <NateRoz L - Last Filed: 10/19/19 19:27> Past Medical History - SOCIAL HISTORY Smoking Status: Former smoker - RESPIRATORY Hx Respiratory Disorders: Yes Hx Asthma: Yes (activity induced asthma) Hx Bronchitis: No Hx COPD: No Hx Dyspnea: No Hx Pneumonia: No Hx Pulmonary Embolism: No Hx Sleep Apnea: No Hx Tuberculosis: No Hx of CPAP: No - CARDIOVASCULAR Hx Cardio Disorders: No - NEURO Hx Neuro Disorders: Yes Hx Headaches: Yes Hx of Migraines: Yes (since 4 years old and occurr frequently) Comment:: head injuries x 2 as child - GI Hx GI Disorders: Yes Hx Abdominal Pain: Yes Hx Celiac Disease: No Hx Crohn's Disease: Yes Hx Diverticulitis: No Hx GI Bleed: Yes Hx Reflux: No Hx Hepatitis/Jaundice: No Hx Hiatal Hernia: No Hx Irritable Bowel: No Hx Liver Disease: No Hx Nausea/Vomiting: Yes Hx Obstructive Bowel: Yes Hx Pancreatitis: No Hx Rectal Bleeding: No Hx Ulcer: No Hx Wt Loss/Wt Gain: Yes Hx of Polyps: No Comment:: diarrhea, partial small bowel obstruction - Hx Genitourinary Disorders: No Hx Bladder Problem: No Hx Dialysis: No Hx Kidney Stones: No Hx Renal Disease: No Hx UTI: No Comment:: pt had tubal ligation October,, has had vasectomy - ENDOCRINE Hx Endocrine Disorders: No Hx Diabetes: No Hx Thyroid Disease: No - MUSCULOSKELETAL Hx Musculoskeletal Disorders: Yes Hx Arthritis: No Hx Back Injury: No Hx Fibromyalgia: No Hx Gout: No Hx Musculoskeletal Disease: No Hx Osteoporosis: No Comment:: 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[employer] - PSYCH Hx Psych Problems: Yes Hx Anxiety: Yes Hx Behavior Problems: No Hx Depression: Yes Hx Emotional Abuse: No Hx Sexual Abuse: No Hx Suicide Attempt: No - HEMATOLOGY/ONCOLOGY Hx Hematology/Oncology Disorders: No Hx Anemia: No Hx Blood Disorders: No Hx Bruising: No Hx Cancer: No Hx Clotting Problems: No Hx Sickle Cell Disease: No Hx Unexplained Bleeding: No Hx Blood Transfusions: No Hx Blood Transfusion Reaction: No <Roz Sullivan - Last Filed: 10/19/19 19:27> Family Medical History Any Significant Family History?: No Family Hx Comment (NOT TO BE USED IN PLACE OF ITEMS BELOW): pt adopted <Roz Sullivan - Last Filed: 10/19/19 19:27> Physical Exam - General General Appearance: Alert, Oriented x3, Cooperative, Mild distress - Head Head exam: Normal inspection - Eye Eye exam: Normal appearance, PERRL, EOMI Pupils: Normal accommodation - ENT ENT exam: Normal exam, Mucous membranes moist, Normal external ear exam, Normal orophraynx Ear exam: Normal external inspection. negative: External canal tenderness Nasal Exam: Normal inspection. negative: Discharge, Sinus tenderness Mouth exam: Normal external inspection, Tongue normal Teeth exam: Normal inspection. negative: Dental caries Throat exam: Normal inspection. negative: Tonsillar erythema, Tonsillar exudate - Neck Neck exam: Normal inspection, Full ROM. negative: Tenderness - Respiratory Respiratory exam: Normal lung sounds bilaterally. negative: Respiratory distress - Cardiovascular Cardiovascular Exam: Regular rate, Normal rhythm, Normal heart sounds - GI/Abdominal GI/Abdominal exam: Soft, Normal bowel sounds, Distended, Tenderness - Rectal Rectal exam: Deferred - exam: Deferred - Extremities Extremities exam: Normal inspection, Full ROM, Normal capillary refill. negative: Tenderness - Back Back exam: Reports: Normal inspection, Full ROM. Denies: Muscle spasm, Rash noted, Tenderness - Neurological Neurological exam: Alert, Normal gait, Oriented X3, Reflexes normal - Psychiatric Psychiatric exam: Normal affect, Normal mood - Skin Skin exam: Dry, Intact, Normal color, Warm <Roz Sullivan Last Filed: 10/19/19 19:27> Course Vital Signs 10/19/19 16:11 Temperature 98.0 F Pulse Rate 96 H Respiratory 18 Rate Blood Pressure 122/88 Pulse Ox 98 - Reevaluation(s) Reevaluation #1: 10/19/19 18:[address] neg for obstrucion. ct shows diarrheal illness Reevaluation #2: 10/19/19 19:[address] eason pending stool studies <Roz Sullivan - Last Filed: 10/19/19 19:27> Vital Signs 10/19/19 10/19/19 10/19/19 16:11 18:51 20:43 Temperature 98.0 F 99.2 F Pulse Rate 96 H 89 Pulse Rate [ 88 Pulse Ox Probe] Respiratory 18 18 18 Rate Blood Pressure 122/88 109/77 Blood Pressure 103/68 [Right Arm] Pulse Ox 98 99 95 - Reevaluation(s) Reevaluation #3: 10/19/19 20:45 The C.diff is negative. No vomiting, pain or diarrhea while waiting for results We discussed the results of the tests and questions were answered. The patient is doing well and is comfortable with DC. We discussed at length reasons to immediately return to the ED as well as close follow up. The patient will call the PCP for close follow up of this ED visit to review this visit and the tests performed <BELIA EASON - Last Filed: 10/19/19 21:20> Medical Decision Making - Lab Data Result diagrams: 10/19/19 17:05 10/19/19 17:05 <Roz Sullivan - Last Filed: 10/19/19 19:27> - Lab Data Result diagrams: 10/19/19 17:05 10/19/19 17:05 Lab Results 10/19/19 10/19/19 10/19/19 Range/Units 17:05 17:05 18:45 WBC 5.0 (4.2-12.2) K/uL RBC 4.88 (3.80-5.40) M/uL Hgb 14.4 (11.6-16.0) gm/dl Hct 44.5 (35.0-47.0) % MCV 91.2 (81-97) fl MCH 29.5 (27-33) pg MCHC 32.4 (32-36) g/dl RDW 14.1 (11.5-14.5) % Plt Count 315 (130-400) K/uL MPV 8.9 (7.4-10.4) fl Gran % 53.5 (47-80) % Lymphocytes % 32.5 (16-45) % Monocytes % 11.6 H (0-9) % Eosinophils % 2.2 (0-6) % Basophils % 0.2 (0-6) % Absolute Neutrophils 2.66 Sodium 140 (136-145) mmol/L Potassium 3.9 (3.4-4.5) mmol/L Chloride 104 (98-107) mmol/L Carbon Dioxide 23.0 (22-29) mmol/L Anion Gap 13.0 (7-16) BUN 15 (6-20) mg/dL Creatinine 0.7 (0.5-0.9) mg/dL Estimated GFR > 60 mL/min Random Glucose 91 (74-109) mg/dL Calcium 8.8 (8.6-10.0) mg/dL Total Bilirubin 0.60 (0.2-1.0) mg/dL AST 29 (10.0-35.0) U/L ALT 47 H (<33) U/L Alkaline Phosphatase 135 H (35-104) U/L Total Protein 7.2 (6.6-8.7) g/dL Albumin 3.9 L (4.0-5.0) g/dL Globulin 3.3 (1.4-4.8) gm/dL Albumin/Globulin Ratio 1.2 (1.1-1.8) Stool Occult Blood (NEGATIVE) Stool for White Cells Few wbc's observed H (NO WBC'S) Rotavirus Antigen (NOT DETECT) Stl C.difficile Tox A&B (NOT DETECT) Cryptosporid parvum Ag (NOT DETECT) Giardia lamblia Ag (NOT DETECT) 10/19/19 10/19/19 Range/Units 18:45 18:45 WBC (4.2-12.2) K/uL RBC (3.80-5.40) M/uL Hgb (11.6-16.0) gm/dl Hct (35.0-47.0) % MCV (81-97) fl MCH (27-33) pg MCHC (32-36) g/dl RDW (11.5-14.5) % Plt Count (130-400) K/uL MPV (7.4-10.4) fl Gran % (47-80) % Lymphocytes % (16-45) % Monocytes % (0-9) % Eosinophils % (0-6) % Basophils % (0-6) % Absolute Neutrophils Sodium (136-145) mmol/L Potassium (3.4-4.5) mmol/L Chloride (98-107) mmol/L Carbon Dioxide (22-29) mmol/L Anion Gap (7-16) BUN (6-20) mg/dL Creatinine (0.5-0.9) mg/dL Estimated GFR mL/min Random Glucose (74-109) mg/dL Calcium (8.6-10.0) mg/dL Total Bilirubin (0.2-1.0) mg/dL AST (10.0-35.0) U/L ALT (<33) U/L Alkaline Phosphatase (35-104) U/L Total Protein (6.6-8.7) g/dL Albumin (4.0-5.0) g/dL Globulin (1.4-4.8) gm/dL Albumin/Globulin Ratio (1.1-1.8) Stool Occult Blood Negative (NEGATIVE) Stool for White Cells (NO WBC'S) Rotavirus Antigen Not detected (NOT DETECT) Stl C.difficile Tox A&B Not detected (NOT DETECT) Cryptosporid parvum Ag Not detected (NOT DETECT) Giardia lamblia Ag Not detected (NOT DETECT) <BELIA EASON - Last Filed: 10/19/19 21:20> Disposition Disposition: Discharge <Roz Sullivan - Last Filed: 10/19/19 19:27> <BELIA EASON - Last Filed: 10/19/19 21:20> Clinical Impression: Diarrhea Qualifiers: Diarrhea type: unspecified type Qualified Code(s): R19.7 - Diarrhea, unspecified Disposition: Home, Self-Care Condition: (1) Good Instructions: Acute Diarrhea (ED) Additional Instructions: follow up with family doctor. return sooner if worse. push fluids. eat bananas, rice, applesauce and toast Quality - Blood Pressure Screening Does Patient Have Any of the Following: No Blood Pressure Classification: Pre-Hypertensive BP Reading Systolic Measurement: 122 Diastolic Measurement: 88 Screening for High Blood Pressure: < Pre-Hypertensive BP, F/U Documented > [G8950] <Roz Sullivan - Last Filed: 10/19/19 19:27> - Quality Measures Quality Measures: N/A - Blood Pressure Screening Does Patient Have Any of the Following: No Blood Pressure Classification: Normal BP Reading Systolic Measurement: 109 Diastolic Measurement: 77 Screening for High Blood Pressure: < Normal BP, F/U Not Required > [G8783] <BELIA EASON - Last Filed: 10/19/19 21:20>
[2019-10-19 17:21] LABS: BLOOD UREA NITROGEN 15 mg/dL (6-20); CREATININE 0.7 mg/dL (0.5-0.9); EST GLOMERULAR FILTRATION RATE > 60 mL/min
[2019-10-19 17:22] LABS: TOTAL PROTEIN 7.2 g/dL (6.6-8.7)
[2019-10-19 17:24] LABS: GLUCOSE,RANDOM 91 mg/dL (74-109)
[2019-10-19 17:26] LABS: ALB/GLOB RATIO 1.2 (1.1-1.8); ALBUMIN 3.9 g/dL (4.0-5.0); ALT/SGPT 47 U/L (<33); AST/SGOT 29 U/L (10.0-35.0)
[2019-10-19 17:27] LABS: ALKALINE PHOSPHATASE 135 U/L (35-104)
--- NOTE | 2019-10-19 17:56 | CT SCAN REPORT ---
EXAMINATION: ABDOMEN/PELVIS WO CONTRAST EXAM DATE:10/19/2019 5:24 PM TECHNIQUE: Spiral CT images were obtained from the lung bases to the ischial tuberosities without int ravenous contrast. Sagittal and coronal 2-D reformats were made from source images. Oral contrast: N o INDICATION: Mid abdominal pain for 2 days. History of Crohn's disease. COMPARISON: 03/05/2018, June 2017 FINDINGS: CT Abdomen: Evaluation of the solid abdominal organs and vascular structures is limited without intr avenous contrast. Liver: The liver is normal in size and morphology. No focal liver lesions. Bile ducts: Normal caliber bile ducts. Gallbladder: Surgically absent. Pancreas: No focal lesions or peripancreatic inflammation. No dilation of the main pancreatic duct . Spleen: Normal size Adrenals: No mass or other abnormality Kidneys and Ureters: No urinary tract stones or hydronephrosis. No focal renal lesions. GI: Sequelae from ileocecectomy with reanastomosis. The terminal ileum appears mild thickening and t here is haziness of the adjacent fat. There is fluid throughout the small bowel and colon. The appen loly is not visualized. Vasculature: Unremarkable. No aneurysmal dilation of the abdominal aorta. Lymph Nodes: No lymphadenopathy. Abdominal Wall: Unremarkable. Peritoneal Cavity: No free intraperitoneal fluid or gas. Retroperitoneum: Unremarkable. Skeletal: Unremarkable. Lung bases: The lung bases are unremarkable. CT Pelvis (In addition to findings described above.): Bladder: The bladder is unremarkable. Uterus and ovaries: Unremarkable. Lymph nodes: No lymphadenopathy. IMPRESSION: Enteritis involving the distal ileum. Fluid throughout the small bowel and colon is compatible with a diarrheal illness. Dictated by: Manoj Clarke MD on 10/19/2019 5:45 PM. .
[2019-10-19] MEDS ORDERED: 0.9 % SODIUM CHLORIDE 1,000 ML BAG IV ONE (18:24)
[2019-10-19] MEDS ORDERED: ONDANSETRON HCL IV 4 MG/2 ML VIAL IVP ONE (18:25)
[2019-10-19 19:20] LABS: ROTOVIRUS NOT DETECTED (NOT DETECT)
[2019-10-19 19:41] LABS: CRYPTOSPORIDIUM PARVUM ANTIGEN NOT DETECTED (NOT DETECT)
[2019-10-19 20:35] LABS: MOLECULAR C DIFF TOXIN SCREEN NOT DETECTED (NOT DETECT)
== END 2019-10-19 20:45 | disposition home or self-care (01) ==
LOC: ER 16:03
DX: R19.7 Diarrhea, unspecified (principal); R10.84 Generalized abdominal pain; R11.0 Nausea
CPT/HCPCS: 74176; 80053; 82272; 85025; 87329; 87425; 87493; 89055; 96361; 96374; 99284; J2405; J7030